=== PATIENT | male | born 1955 | race Caucasian/White ===

== ENCOUNTER 2017-03-07 10:46 | Inpatient (IN) ==
--- NOTE | 2017-03-07 11:10 | History & Physical Report ---
Date of Encounter: 03/07/17 Time of Encounter: 11:11 24 Hour HP Update - Instructions Instructions: If the History and Physical is less than 30 days old and was completed prior to A.M. admission and or procedure and has NOT been updated on calendar day of procedure please complete this update prior to performing procedure. - Update Patient reports changes in Medical Condition: No Changes in examination, assessment, or condition: No Changes in Medication: No Preop tests/diagnostics Reviewed: Yes Surgery Remains Indicated: Yes Consent for Planned Operative Procedure(s) Verified: Yes - Pre-Operative Checklist Preoperative Checklist Indicated: Yes Prophylactic Antibiotic Ordered: No Home Medications Include Beta Carlos: Yes
--- NOTE | 2017-03-07 11:11 | Pre-Sedation Evaluation ---
Pre-sedation evaluation - Pre-sedation checklist H&P (including ROS) documented in medical record: Yes Previous reaction to sedatives/anesthetics: No Dietary Status: NPO after Midnight Dentition: No loose teeth or bridges Possible difficult airway: No ASA Classification *see protocol: CLASS II-Mild systemic disease, CLASS III- Severe systemic disease
[2017-03-07] MEDS ORDERED: 0.9 % Sodium Chloride 1,000 ML IVC SCH (11:45)
[2017-03-07] MEDS ORDERED: *HR* Midazolam HCl 5 MG/5 ML VIAL IVP ONE ×2 (12:04→12:13)
[2017-03-07] MEDS ORDERED: *HR* FentaNYL (PF) 100 MCG/2 ML VIAL ONE (12:04)
[2017-03-07] MEDS ORDERED: *HR* FentaNYL (PF) 100 MCG/2 ML VIAL IVP ONE (12:13)
[2017-03-07] MEDS ORDERED: Tetracaine/Benzocaine/Butamben 200MG/SPRAY (100SPY/BOT) MM ONE (12:13)
[2017-03-07] MEDS ORDERED: Simethicone 40 MG/0.6 ML MLS IR ONE (12:13)
[2017-03-07] MEDS ORDERED: Pantoprazole 40 MG VIAL IVP SCH (13:30)
[2017-03-07 14:15] LABS: Calcium 8.7 mg/dL (8.6-10.8); Potassium 4.3 mEq/L (3.5-4.5)
[2017-03-07] MEDS ORDERED: Ondansetron 4 MG/2 ML VIAL IVP PRN (15:53)
[2017-03-07] MEDS ORDERED: Naloxone 0.4 MG/ML INJ IVP PRN (15:53)
[2017-03-07] MEDS ORDERED: Nitroglycerin 0.4 MG TAB.SUBL SL PRN (15:59)
[2017-03-07] MEDS ORDERED: Melatonin 3 MG TABLET PO PRN (16:03)
--- NOTE | 2017-03-07 16:08 | Internal Med History&Physical ---
Date of Encounter: 03/07/17 Time of Encounter: 15:00 Assessment and Plan (1) Upper GI bleeding Current visit: Yes Status: Acute Acute GI bleeding. Upper GI endoscopy today shows LA grade a reflux esophagitis , bleeding gastric ulcer, no specimens collected. Recommendation from GI is to observe patient due to presence of very large adherent clot presumably due to an ulcer for ongoing care, keep patient nothing by mouth, continue present medications. IVP Protonix 40 mg BID and IVP Zofran Q6 PRN. Monitor H/H and f/u labs. Pt. is at high risk for further morbidity d/t bleeding, risk factors, sx, and hx. Inpatient. (2) Abdominal pain Current visit: Yes Status: Acute Acute abdominal pain that patient describes as generalized, epigastric, and like burning. Pt. states abdominal pain and melanotic stools have been intermittent over the past several weeks. Takes by mouth pantoprazole 40 mg twice a day. We will hold oral administer Protonix IV P 40 mg twice a day. IVP Zofran every 6 when necessary. Dilaudid 0.5 mg IVP for pain. NPO except medications for now. GI to do scope procedure in a.m. Qualifiers: Abdominal location: epigastric Qualified Code(s): R10.13 - Epigastric pain (3) Weakness Current visit: Yes Status: Acute Acute weakness r/t current anemia d/t blood loss in UGI tract. Falls/safety precautions ordered. PT/OT consults ordered to assess pt. for ambulation strength and stability d/t to report of dizziness w/ambulation. (4) MAHNAZ (acute kidney injury) Current visit: Yes Status: Acute MAHNAZ on chronic CKD. Pts. current creatinine 1.80 and GFR 38 on admission. Will monitor pt. and f/u labs for renal function and administer IV fluids judiciously. Will hold pts. methotrexate and aspirin for now. Avoid other nephrotoxins. Monitor I&O. (5) Anemia Current visit: Yes Status: Acute Hx of chronic anemia r/t GI bleeding. CBC ordered shows Hgb 9.4 and Hct 30.1. Previous labs from 09/15/15 show Hgb 10.2 and Hct 32.5. Will monitor H/H and f/u labs. Iron profile ordered to assess need for possible iron infusion. Pt. typed and screened (O positive). Continue pts. folic acid. Qualifiers: Anemia type: iron deficiency Iron deficiency anemia type: chronic blood loss Qualified Code(s): D50.0 - Iron deficiency anemia secondary to blood loss (chronic) (6) CAD (coronary artery disease) Current visit: Yes Status: Chronic Hx of double bypass surgery in 2013 and placement of stents x4. Continuous cardiac telemetry. Will continue Losartan 50/12/5 x 1 daily d/t hypotension w/ BID dosing. Continue atorvastatin and Coreg. Will hold aspirin d/t current GI bleeding. Qualifiers: Coronary Disease-Associated Artery/Lesion type: [place] artery [place] vs. transplanted heart: [place] heart Associated angina: angina presence unspecified Qualified Code(s): I25.10 - Atherosclerotic heart disease of [place] coronary artery without angina pectoris (7) HTN (hypertension) Current visit: Yes Status: Chronic Hx of chronic HTN. Monitor pt. and VS. Continue pts. Losartan/HCTZ. Pt. takes 50 /12.5 BID but states his BP tends to go low. Will administer 1 daily 50/12.5 and monitor pt. Qualifiers: Hypertension type: essential hypertension Qualified Code(s): I10 - Essential (primary) hypertension (8) HLD (hyperlipidemia) Current visit: Yes Status: Chronic Hx of chronic HLD. Lipid panel in a.m. labs. Continue pts. atorvastatin. Qualifiers: Hyperlipidemia type: pure hypercholesterolemia Qualified Code(s): E78.00 - Pure hypercholesterolemia, unspecified; E78.0 - Pure hypercholesterolemia (9) GERD (gastroesophageal reflux disease) Current visit: Yes Status: Chronic Hx of chronic GERD. Pt. takes PO pantoprazole 40 mg BID. Will hold oral and administer 40 mg IVP Protonix BID. IVP Zofran Q6 PRN for nausea. Qualifiers: Esophagitis presence: with esophagitis Qualified Code(s): K21.0 - Gastro- esophageal reflux disease with esophagitis (10) Rheumatoid arthritis Current visit: Yes Status: Chronic Hx of chronic RA. Pt. reports he takes methotrexate 5 every Tuesday. Will hold methotrexate now d/t current reduced renal function. Qualifiers: Rheumatoid arthritis location: multiple sites Rheumatoid factor presence: unspecified presence Qualified Code(s): M06.9 - Rheumatoid arthritis, unspecified (11) DVT prophylaxis Current visit: Yes Status: Acute Bilateral SCDs on LEs for DVT prophylaxis. Pharmacologic DVT prophylaxis contraindicated due to current GI bleeding. Monitor pt. for signs of bleeding. Internal Medicine - H&P: HPI Chief complaint: Abdominal Pain/UGI bleeding Admitted From: Emergency Dept Plans for Post Hospital Care: Home History of present illness: Mr. Morrison is a 62 year old male with medical history of CAD (open heart surgery with bypass in 2013 and stent placement 4), sleep apnea, HTN, HLD, GERD , COPD, and RA presents from the ED with chief complaint of abdominal pain and heartburn intermittently for the past several weeks that he describes as burning and pain. Patient states he has been experiencing black stools for the past several weeks intermittently with the last incident 1 week ago. Patient also states he is experiencing dizziness w/ambulation, generalized weakness, fatigue, and insomnia. Patient denies recent illness, fever, chills, nausea, vomiting, headache, changes in vision, chest pain, shortness of breath palpitations, numbness, tingling, pre-syncope, or syncope. Past Med Surg Social Fam HX - Past Medical History Source: patient, old records reviewed Medical history: coronary artery disease, GERD, GI bleed, hyperlipidemia, hypertension, RA, renal disease Psychiatric history: no psych history - Past Surgical History Surgical History: angioplasty/stent (x4), appendectomy, coronary bypass (CABG) ( Double bypass in 2013), vasectomy - Social History Smoking Status: Former smoker Alcohol use: none Drug use: none Current living situation: Home, With Family Activity Level: Independent ambulation Recent Out of Country Travel Within the Last 8 Weeks: No Exposure or Possible Exposure to Illness During Travel: No - Family History Father Race: Family Member Ethnicity: Non- Living Status: Age at : 79 Cause of : [place] Hx Family Cardiac Disorders: Yes ([place], CAD, HTN) Mother Race: Family Member Ethnicity: Non- Living Status: Still Living Hx Family Medical Disorders: No Brother Race: Family Member Ethnicity: Non- Living Status: Age at : 39 Cause of : [place] Hx Family Cardiac Disorders: Yes ([place], CAD, HTN) Sister Race: Family Member Ethnicity: Non- Living Status: Still Living Hx Family Medical Disorders: No Internal Medicine - H&P: Meds Aspirin 81 mg PO DAILY 03/07/17 [History] Atorvastatin Calcium 80 mg PO HS 03/07/17 [History] Carvedilol [Coreg] 25 mg PO BID 03/07/17 [History] Folic Acid [Folic Acid] 1 mg PO BID 03/07/17 [History] Losartan/Hydrochlorothiazide [Losartan-Hctz 50-12.5 mg Tab] 1 tab PO BID [History] Methotrexate [Otrexup] 12.5 mg PO FR 03/07/17 [History] Nitroglycerin [Nitroglycerin] 0.4 mg PO Q5M PRN 03/07/17 [History] Pantoprazole Sodium 40 mg PO BID 03/07/17 [History] 3 Allergy/AdvReac Type Severity Reaction Status Date / Time Amoxicillin [From Augmentin] AdvReac Gastrointestinal Verified 03/07/17 11:41 Upset clavulanic acid AdvReac Gastrointestinal Verified 03/07/17 11:41 [From Augmentin] Upset All Systems PM: A 10-system review of systems was performed and is negative for pertinent findings except as documented above in the HPI. - Constitutional Constitutional: as per HPI, fatigue, weakness, no chills, no fever(s), no night sweats - EENT Eyes: no change in vision, no discharge, no pain, no photophobia Ears: no ear discharge, no ear pain, no tinnitus Nose, mouth and throat: no dysphagia, no nasal discharge, no neck pain, no sore throat - Breasts Breasts: as per HPI - Cardiovascular Cardiovascular ROS IM: no chest pain, no diaphoresis, no dyspnea, no lightheadedness, no palpitations, no syncope - Respiratory Respiratory: no cough, no dyspnea, no wheezing, no excessive phlegm production - Gastrointestinal Gastrointestinal: as per HPI, abdominal pain, melena - Genitourinary Genitourinary ROS male: as per HPI - Musculoskeletal Musculoskeletal ROS IM: no numbness, no tingling - Integumentary Integumentary IM: no rash, no unusual bruising - Neurological Neurological ROS: as per HPI, dizziness, no confusion, no convulsions, no focal weakness, no numbness, no tingling, no tremor(s) - Psychiatric Psychiatric: as per HPI - Endocrine Endocrine IM: as per HPI - Hematologic/Lymphatic Hematologic/Lymphatic: no easy bruising - Allergic/Immunologic Allergic/Immunologic: as per HPI - Constitutional Vitals: Temp Pulse Resp BP Pulse Ox 98.2 F 71 16 160/84 98 03/07/17 15:07 03/07/17 15:07 03/07/17 15:07 03/07/17 15:07 03/07/17 15:07 General appearance: Present: cooperative, mild distress (Abdominal pain), A&O X 3, pleasant, obese, answers questions appropriately - Head Head exam: Present: atraumatic, normal inspection, normocephalic - Eye Eye exam: Present: PERRL, conjuntiva pink, sclera anicteric Pupils: Present: PERRL - ENT ENT exam: Present: normal exam, normal external ear exam - Neck Neck exam general surgery: Present: supple, trachea midline. Absent: lymphadenopathy - Respiratory Respiratory exam: Present: CTAB. Absent: accessory muscle use, rales, rhonchi, wheezes - Cardiovascular Cardiovascular exam: Present: RRR, +S1, +S2. Absent: diastolic murmur, gallop, rubs, systolic murmur - GI/Abdominal GI/Abdominal exam: Present: guarding, normal bowel sounds, soft, tenderness, no peritoneal signs. Absent: distended - Rectal Rectal exam: Present: deferred - Additional comments: exam deferred. - Extremities Exam Extremities exam: Present: warm, radial pulses palpable and symmetrical. Absent : calf tenderness, cyanotic, pedal edema - Back Exam Back exam: Present: normal inspection - Neurological Exam Neurological exam: Present: CN II-XII intact, oriented X3, no focal deficits. Absent: pronater drift, facial droop, speech deficit - Psychiatric Psychiatric exam: Present: normal affect, normal mood - Skin Skin exam: Present: dry, intact Internal Med - H&P Results - Labs CBC & Chem 7: 03/07/17 13:50 03/07/17 13:50 Labs: BMP 03/07/17 13:50 Sodium 140 Potassium 4.3 Chloride 109 Carbon Dioxide 26 BUN 18 Creatinine 1.80 H Glucose 96 Calcium 8.7
[2017-03-07 16:37] LABS: Basophils % 0.6 %; Eosinophils # 0.2 K/mcL (0.0-0.6); Eosinophils % 3.7 %; Hematocrit 30.1 % (37.5-50.1); Hemoglobin 9.4 g/dL (12.9-16.9); Immature Granulocytes % 0.4 % (0-4); Lymphocytes # 0.8 K/mcL (0.6-4.6); Lymphocytes % 15.4 %; Mean Corpuscular HGB Conc 31.2 g/dL (31.6-35.5); Mean Corpuscular Hemoglobin 27.6 pg (28.0-33.3); Mean Corpuscular Volume 88.5 fL (83.0-100.0); Mean Platelet Volume 10.1 fL (9.4-12.4); Monocytes # 0.4 K/mcL (0.0-1.3); Monocytes % 7.6 %; Neutrophils # 3.9 K/mcL (1.6-8.9); Platelet Count 121 K/mcL (140-400); Red Cell Distribution Width 17.1 % (11.5-14.5); Segmented Neutrophils % 72.3 %
[2017-03-07] MEDS: Losartan/HCTZ 50-12.5 TABLET PO SCH (17:57)
[2017-03-07] MEDS: *HR* HYDROmorphone (PF) 1 MG/ML SYRINGE IVP PRN (17:57)
[2017-03-07] MEDS: Pantoprazole 40 MG VIAL IVP SCH (17:57)
--- NOTE | 2017-03-07 19:48 | Event Note ---
Date of Encounter: 03/07/17 Time of Encounter: 18:40 Patient seen and examined. Plan discussed with PERSONAL DRIVER. History and physical reviewed and agree with the plan S Patient stated today he had progressive epigastric discomfort sharp-like sensation 10 out of 10 in severity mild relief with Protonix. Patient had EGD today which show large blood clot, LA grade a reflux esophagitis, bleeding gastric ulcer. Patient is feeling much better now after Protonix and pain medication. Patient denies any chest pain or shortness of breath Chest clear to auscultation bilateral Heart S1-S2 normal regular rate and rhythm Abdomen soft Assessment and plan Reflux esophagitis Bleeding gastric ulcer Anemia secondary to blood loss Anemia workup, Protonix, monitor overnight, possible EGD tomorrow
[2017-03-07] MEDS: Folic Acid 1 MG TABLET PO SCH (22:52)
[2017-03-07] MEDS: 0.9 % Sodium Chloride 1,000 ML IVC SCH (22:52)
[2017-03-08] MEDS: *HR* HYDROmorphone (PF) 1 MG/ML SYRINGE IVP PRN ×3 (04:15→21:47)
[2017-03-08] MEDS: Pantoprazole 40 MG VIAL IVP SCH ×2 (05:33→17:45)
[2017-03-08 07:25] LABS: Basophils % 0.6 %; Eosinophils # 0.2 K/mcL (0.0-0.6); Eosinophils % 3.9 %; Hematocrit 27.9 % (37.5-50.1); Hemoglobin 8.9 g/dL (12.9-16.9); Immature Granulocytes % 0.2 % (0-4); Lymphocytes # 0.8 K/mcL (0.6-4.6); Lymphocytes % 15.7 %; Mean Corpuscular HGB Conc 31.9 g/dL (31.6-35.5); Mean Corpuscular Hemoglobin 28.3 pg (28.0-33.3); Mean Corpuscular Volume 88.6 fL (83.0-100.0); Mean Platelet Volume 10.3 fL (9.4-12.4); Monocytes # 0.3 K/mcL (0.0-1.3); Monocytes % 6.3 %; Neutrophils # 3.6 K/mcL (1.6-8.9); Platelet Count 104 K/mcL (140-400); Red Blood Count 3.15 M/mcL (4.19-5.50); Red Cell Distribution Width 17.1 % (11.5-14.5); Segmented Neutrophils % 73.3 %
[2017-03-08 07:33] LABS: INR 1.4; Prothrombin Time 14.8 Seconds (9.4-12.1)
[2017-03-08 07:35] LABS: Albumin 2.5 g/dL (3.5-5.0); Albumin/Globulin Ratio 0.6 (1.1-2.2); Bilirubin,Total 1.4 mg/dL (0.2-1.2); Calcium 8.2 mg/dL (8.6-10.8); Chol/HDL Ratio 3.7 (0-4.9); Globulin 4.3 g/dL (2.4-3.5); Magnesium 1.6 mg/dL (1.6-2.6); Total Protein 6.8 g/dL (6.0-8.3)
[2017-03-08 07:36] LABS: Activated Partial Thrombo Time 32.2 Seconds (26.0-36.0)
[2017-03-08 07:52] LABS: Hemoglobin A1C 5.3 %
[2017-03-08] MEDS: Losartan/HCTZ 50-12.5 TABLET PO SCH (08:35)
[2017-03-08] MEDS: Folic Acid 1 MG TABLET PO SCH ×2 (08:35→21:55)
[2017-03-08] MEDS: 0.9 % Sodium Chloride 1,000 ML IVC SCH ×2 (08:37→21:53)
--- NOTE | 2017-03-08 08:50 | Gastroenterology Consult Note ---
<Carlos Perez - Last Filed: 03/08/17 08:44> Date of Encounter: 03/08/17 Time of Encounter: 08:44 - Assessment and plan (2) Weight loss Status: Acute Assessment and plan: reports 10 pound weight loss in past month reports last colonoscopy at age 48 with findings of benign polyps patient needs another screening colonoscopy (4) Gastric ulcer Status: Acute Assessment and plan: EGD yesterday showd cratered gastric ulcer bleeding with massive adherent clot. patient admitted duet o high risk of bleeding. hgb 8.9. Baseline 13 NPO continue PPI BID EGD today. Qualifiers: Gastric ulcer chronicity: acute Gastric ulcer complication status: unspecified whether hemorrhage or perforation present Qualified Code(s): K25.3 - Acute gastric ulcer without hemorrhage or perforation - Time Spent With Patient Total time spent is greater than 50% in coordination of care (as documented) at patient's floor/unit and/or counseling patient: GI History of Present Illness - Data of Consult Patient: known to practice within the last 3 years Consult date: 03/07/17 Requesting Physician: Kellen Nunn MD - Consult Narrative Reason for consult: bleeing gastric ulcer with large adherent clot. History of present illness: Mr. Morrison is a 62 year old male was admitted after having found a large gastric ulcer with adherent massive clot. Patient underwent EGD due to recurrent abdominal pain and history of peptic ulcer disease. Patient states in the last month he has lost 10 pounds. He reports sore epigastric pain. He denies black stools, hematochezia, nausea, vomiting. Patient's hemoglobin was 9.4 on admission below her baseline of 13. He denies smoking, use of alcohol. Reports taking low-dose daily aspirin and sometimes Tylenol for pain. Denies use of NSAIDs. Denies family history of colon cancer. Past Med Surg Social Fam HX - Past Medical History Medical history: coronary artery disease, GERD, GI bleed, hyperlipidemia, hypertension, RA, renal disease Psychiatric history: no psych history - Past Surgical History Surgical History: angioplasty/stent (x4), appendectomy, coronary bypass (CABG) ( Double bypass in 2013), vasectomy - Social History Smoking Status: Former smoker Alcohol use: none Drug use: none - Family History Father Race: Family Member Ethnicity: Non- Living Status: Age at : 79 Cause of : [place] Hx Family Cardiac Disorders: Yes ([place], CAD, HTN) Mother Race: Family Member Ethnicity: Non- Living Status: Still Living Hx Family Medical Disorders: No Brother Race: Family Member Ethnicity: Non- Living Status: Age at : 39 Cause of : [place] Hx Family Cardiac Disorders: Yes ([place], CAD, HTN) Sister Race: Family Member Ethnicity: Non- Living Status: Still Living Hx Family Medical Disorders: No Review of Systems: Constitutional: Denies fever, chills HEENT: Denies headache, vision changes, neck pain, sore throat, rhinorrhea Heart: Denies chest pain palpitations Lungs: Denies shortness of breath cough Abdomen: Reports abdominal pain. Denies nausea vomiting diarrhea Back: Denies back pain Kidney: Denies dysuria, hematuria Skin: warm and dry Extremities: Denies swelling, pain Neuro: Denies numbness, and tingling - Constitutional Vitals: Temp Pulse Resp BP Pulse Ox 97.8 F 64 16 170/82 99 03/08/17 07:30 03/08/17 07:30 03/08/17 07:30 03/08/17 07:30 03/08/17 07:30 - Other Additional findings: General: Pleasant without distress HEENT: Head atraumatic, normocephalic, EOMI, PERRL, neck nontender to palpation , absent lymphadenopathy, Moist Mucous Membranes, Heart: Regular rate and rhythm with no murmur Lungs: Clear to auscultation bilaterally Abdomen: Soft nontender, nondistended positive bowel sounds Skin: warm and dry Extremities: Absent pedal edema, Neuro: Alert oriented 3 Vascular: Pedal and radial pulses 2 out of 4 Results - Labs CBC & Chem 7: 03/08/17 07:02 03/08/17 07:02 Labs: Last Result Calcium 8.2 mg/dL (8.6-10.8) L 03/08/17 07:02 Iron 72 mcg/dL (65-175) 03/07/17 13:50 % Saturation 21 % (20-55) 03/07/17 13:50 Transferrin 244 mg/dL (174-364) 03/07/17 13:50 Triglycerides 109 mg/dL (< 150) 03/08/17 07:02 Entire Visit Hgb 8.9 g/dL (12.9-16.9) L 03/08/17 07:02 Hct 27.9 % (37.5-50.1) L 03/08/17 07:02 PT 14.8 Seconds (9.4-12.1) H 03/08/17 07:02 Total Bilirubin 1.4 mg/dL (0.2-1.2) H 03/08/17 07:02 AST 42 Units/L (5-34) H 03/08/17 07:02 ALT 41 Units/L (0-55) 03/08/17 07:02 - ABG ABG results: PT/INR, D-dimer PT 14.8 Seconds (9.4-12.1) H 03/08/17 07:02 Consult Discharge Plan - Plan Instructions: Chronic Kidney Disease (DC), Gastroesophageal Reflux Disease (DC) , Chronic Hypertension (DC) Additional Instructions: Please see GI Dr. Tanner in 3-5 days [place] see Heme Onc Dr. Denton in 3-5 days Referrals: Kofi Tanner MD [Partnered Physician] - Miguel Monae MD [Partnered Physician] - Rhoda Yu MD [Non-Partnered Physician] - Prescriptions: OxyCODONE Immed Rel [Roxicodone 5 MG] 5 mg PO Q4HR PRN #20 tablet PRN Reason: Moderate Pain amLODIPine [Norvasc] 5 mg PO DAILY #30 tablet Losartan Potassium [Cozaar] 100 mg PO DAILY #30 tab Pantoprazole Sodium 40 mg PO BID #60 tablet. Sucralfate [Carafate] 1 gm PO QIDA #120 udc <Kofi Tanner - Last Filed: 03/16/17 09:22> Date of Encounter: 03/08/17 - Time Spent With Patient Total time spent is greater than 50% in coordination of care (as documented) at patient's floor/unit and/or counseling patient: GI History of Present Illness - Data of Consult Requesting Physician: Kellen Nunn MD - Consult Narrative History of present illness: Mr. Morrison is a 62 year old male - Constitutional Vitals: Temp Pulse Resp BP Pulse Ox 98.7 F 72 16 142/80 98 12//17 08:13 03/12/17 08:13 03/12/17 08:13 03/12/17 08:13 03/12/17 08:13 Results - Labs CBC & Chem 7: 03/11/17 17:00 03/10/17 05:47 Labs: Last Result Calcium 7.9 mg/dL (8.6-10.8) L 03/10/17 05:47 Iron 72 mcg/dL (65-175) 03/07/17 13:50 % Saturation 21 % (20-55) 03/07/17 13:50 Transferrin 244 mg/dL (174-364) 03/07/17 13:50 Triglycerides 109 mg/dL (< 150) 03/08/17 07:02 Entire Visit Hgb 9.4 g/dL (12.9-16.9) L 03/11/17 17:00 Hct 29.7 % (37.5-50.1) L 03/11/17 17:00 PT 14.8 Seconds (9.4-12.1) H 03/08/17 07:02 Total Bilirubin 1.0 mg/dL (0.2-1.2) 03/10/17 05:47 AST 29 Units/L (5-34) 03/10/17 05:47 ALT 30 Units/L (0-55) 03/10/17 05:47 Carcinoembryonic Ag 5.4 ng/mL (0-5.0) H 03/09/17 06:12 - ABG ABG results: PT/INR, D-dimer PT 14.8 Seconds (9.4-12.1) H 03/08/17 07:02 - Attending Attestation Patient admitted with large adherent clot in the body of stomach. Hemoglobin significantly dropped from his last check. I examined this patient and my medical decision-making was reviewed with the Resident Physician. I agree with the documented findings, disposition and treatment plan as described except to the extent set forth below.
--- NOTE | 2017-03-08 10:17 | Internal Med Progress Note ---
Date of Encounter: 03/08/17 Time of Encounter: 10:13 - Assessment and plan (1) Acute blood loss anemia Current Visit: Yes Status: Acute Assessment and plan: s/p EGD - found blood clot over gastric ulcer Hb dropped down to 8.9 today...baseline @ 10.2 cont close monitoring No need of PRBC transfusion now scheduled for f/u EGD today (2) Upper GI bleeding Current Visit: Yes Status: Acute Assessment and plan: due to Gastric ulcer cont PPI BID + Carafate scheduled for f/u EGD today (3) Gastric ulcer Current Visit: Yes Status: Acute Qualifiers: Gastric ulcer chronicity: acute Gastric ulcer complication status: unspecified whether hemorrhage or perforation present Qualified Code(s): K25.3 - Acute gastric ulcer without hemorrhage or perforation (4) Acute kidney injury superimposed on CKD Current Visit: Yes Status: Acute Assessment and plan: mild MAHNAZ on CKD-3 improving slowly baseline Cr @ 1.4 cont IV hydration (5) Rheumatoid arthritis Current Visit: Yes Status: Chronic Assessment and plan: Hold methotrexate due to ulcer Qualifiers: Rheumatoid arthritis location: multiple sites Rheumatoid factor presence: unspecified presence Qualified Code(s): M06.9 - Rheumatoid arthritis, unspecified (6) CAD (coronary artery disease) Current Visit: Yes Status: Chronic Assessment and plan: held ASA / Anti platelet meds cont Coreg + Statin Qualifiers: Coronary Disease-Associated Artery/Lesion type: [place] artery [place] vs. transplanted heart: [place] heart Associated angina: angina presence unspecified Qualified Code(s): I25.10 - Atherosclerotic heart disease of [place] coronary artery without angina pectoris - Subjective Interval history: Mr. Morrison is a 62 year old male with medical history of CAD (open heart surgery with bypass in 2012 and stent placement 4), sleep apnea, HTN, HLD, GERD , COPD, and RA went for an elective EGD for his recurrent abdominal pain and recent weight loss. He found to have a large gastric ulcer with adherent massive clot. He was admitted here for acute GI bleed and anemia. He denies black stools, hematochezia, nausea, vomiting. Patient's hemoglobin was 9.4 on admission below her baseline of 13. He denied any CP / SOB / Abd pain today. Stated he is feeling little better now. - Constitutional Vitals: Temp Pulse Resp BP Pulse Ox 97.8 F 64 16 170/82 99 03/08/17 07:30 03/08/17 07:30 03/08/17 07:30 03/08/17 07:30 03/08/17 08:40 General appearance: Present: cooperative, A&O X 3, no acute distress, obese, answers questions appropriately - Head Head exam: Present: atraumatic, normal inspection - Neck Neck exam general surgery: Present: supple - Respiratory Respiratory exam: Present: decreased breath sounds. Absent: rales, respiratory distress, rhonchi, wheezes - Cardiovascular Cardiovascular exam: Present: RRR, +S1, +S2. Absent: systolic murmur - GI/Abdominal GI/Abdominal exam: Present: normal bowel sounds, soft. Absent: rebound, rigid, tenderness - Extremities Exam Extremities exam: Absent: calf tenderness, pedal edema, tenderness - Back Exam Back exam: Absent: CVA tenderness (L), CVA tenderness (R) - Psychiatric Psychiatric exam: Present: normal affect, normal mood - Skin Skin exam: Absent: rash Internal Medicine: Result - Labs CBC & Chem 7: 03/08/17 07:02 03/08/17 07:02 Labs: Short CBC 03/07/17 03/08/17 Range/Units 13:50 07:02 WBC 5.4 4.9 (4.3-11.1) K/mcL Hgb 9.4 L 8.9 L (12.9-16.9) g/dL Hct 30.1 L 27.9 L (37.5-50.1) % Plt Count 121 L 104 L (140-400) K/mcL Neutrophils # 3.9 3.6 (1.6-8.9) K/mcL BMP 03/07/17 03/08/17 13:50 07:02 Sodium 140 139 Potassium 4.3 4.0 Chloride 109 108 Carbon Dioxide 26 23 BUN 18 18 Creatinine 1.80 H 1.76 H Glucose 96 87 Calcium 8.7 8.2 L Liver Function 03/08/17 Range/Units 07:02 Total Bilirubin 1.4 H (0.2-1.2) mg/dL AST 42 H (5-34) Units/L ALT 41 (0-55) Units/L Alkaline Phosphatase 151 H (38-126) Units/L Albumin 2.5 L (3.5-5.0) g/dL - ABG Interpretation ABG results: PT/INR, D-dimer PT 14.8 Seconds (9.4-12.1) H 03/08/17 07:02 Consult Discharge Plan - Plan Referrals: NONE,PCP [Primary Care Provider] -
[2017-03-08 11:20] LABS: Basophils % 0.6 %; Eosinophils # 0.2 K/mcL (0.0-0.6); Eosinophils % 3.7 %; Hematocrit 27.9 % (37.5-50.1); Hemoglobin 8.7 g/dL (12.9-16.9); Immature Granulocytes % 0.2 % (0-4); Lymphocytes # 0.7 K/mcL (0.6-4.6); Lymphocytes % 13.9 %; Mean Corpuscular HGB Conc 31.2 g/dL (31.6-35.5); Mean Corpuscular Volume 89.7 fL (83.0-100.0); Mean Platelet Volume 10.1 fL (9.4-12.4); Monocytes # 0.4 K/mcL (0.0-1.3); Monocytes % 7.3 %; Neutrophils # 3.6 K/mcL (1.6-8.9); Platelet Count 109 K/mcL (140-400); Red Blood Count 3.11 M/mcL (4.19-5.50); Segmented Neutrophils % 74.3 %
--- NOTE | 2017-03-08 12:47 | Anesthesia Evaluation PreOp ---
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: Denies Any Significant HX Other Medical History: Renal (MAHNAZ) Anesthesia History: No Prior Anesthetic Complications, Past Anesthesia (CABG) Alcohol Use: none Drug use: none Medications and Allergies Aspirin 81 mg PO DAILY 03/07/17 [History] Atorvastatin Calcium 80 mg PO HS 03/07/17 [History] Carvedilol [Coreg] 25 mg PO BID 03/07/17 [History] Folic Acid [Folic Acid] 1 mg PO BID 03/07/17 [History] Losartan/Hydrochlorothiazide [Losartan-Hctz 50-12.5 mg Tab] 1 tab PO BID [History] Methotrexate [Otrexup] 12.5 mg PO FR 03/07/17 [History] Nitroglycerin [Nitroglycerin] 0.4 mg PO Q5M PRN 03/07/17 [History] Pantoprazole Sodium 40 mg PO BID 03/07/17 [History] 3 Allergy/AdvReac Type Severity Reaction Status Date / Time Amoxicillin [From Augmentin] AdvReac Gastrointestinal Verified 03/07/17 11:41 Upset clavulanic acid AdvReac Gastrointestinal Verified 03/07/17 11:41 [From Augmentin] Upset - Meds/Allergy Pre-op Review Medications Reviewed: Yes Allergies Reviewed: Yes Beta Blockers on Current Med List: Yes If Beta Blockers taken, Date/Time (Last Dose taken): today 834 Anesthesia Results - Labs 03/08/17 10:37 03/08/17 07:02 Anesthesia Exam Selected Entries 03/08/17 12:42 Temperature 97.8 F Pulse Rate 68 Respiratory Rate 18 Blood Pressure 153/86 O2 Sat by Pulse Oximetry 99 Weight: 115kg NPO (# of Hours): >>8hrs - HEENT Pupil (Motor): EOMI Mallampati: II Teeth: Normal Oral Opening: Greater than 3 - INDUSTRIAL [employer]CE FABRICATOR LOC: Oriented [employer]USTRIAL [employer]NACE FABRICATOR Motor: Normal RUE, Normal LUE, Normal RLE, Normal LLE, Normal Face [employer] FABRICATOR Sensory: Normal: RUE, LUE, RLE, LLE, Face - Cardiac Rhythm: Regular Murmur: None - Pulmonary Breath Sounds: bilateral Clear Respiratory Effort: Symmetrical Anesthesia Assess/Plan ASA Score: 2 Modified [place] Scale for Level of Consciousness: Cooperative, oriented, and tranquil Anesthetic Plan: MAC Monitoring Plan: Standard Monitors Recovery Plan: Other (Agrees to MAC)
[2017-03-08] MEDS ORDERED: *HR* Propofol 200 MG/20 ML VIAL IVP ONE (13:30)
[2017-03-08 16:54] LABS: Hematocrit 28.5 % (37.5-50.1); Hemoglobin 8.9 g/dL (12.9-16.9)
[2017-03-09 04:32] LABS: Basophils % 0.4 %; Eosinophils # 0.1 K/mcL (0.0-0.6); Hematocrit 27.6 % (37.5-50.1); Hemoglobin 8.9 g/dL (12.9-16.9); Immature Granulocytes % 0.8 % (0-4); Lymphocytes # 0.4 K/mcL (0.6-4.6); Lymphocytes % 4.4 %; Mean Corpuscular HGB Conc 32.2 g/dL (31.6-35.5); Mean Corpuscular Hemoglobin 28.6 pg (28.0-33.3); Mean Corpuscular Volume 88.7 fL (83.0-100.0); Mean Platelet Volume 10.3 fL (9.4-12.4); Monocytes # 0.6 K/mcL (0.0-1.3); Monocytes % 6.3 %; Neutrophils # 8.6 K/mcL (1.6-8.9); Platelet Count 240 K/mcL (140-400); Red Blood Count 3.11 M/mcL (4.19-5.50); Segmented Neutrophils % 87.1 %
[2017-03-09] MEDS: Pantoprazole 40 MG VIAL IVP SCH ×2 (05:30→16:42)
[2017-03-09] MEDS: *HR* HYDROmorphone (PF) 1 MG/ML SYRINGE IVP PRN ×3 (05:38→20:10)
[2017-03-09 07:12] LABS: Albumin 2.3 g/dL (3.5-5.0); Albumin/Globulin Ratio 0.5 (1.1-2.2); Bilirubin,Total 1.1 mg/dL (0.2-1.2); Calcium 8.2 mg/dL (8.6-10.8); Globulin 4.3 g/dL (2.4-3.5); Potassium 4.1 mEq/L (3.5-4.5); Total Protein 6.6 g/dL (6.0-8.3)
[2017-03-09] MEDS: 0.9 % Sodium Chloride 1,000 ML IVC SCH ×3 (08:13→22:04)
[2017-03-09] MEDS: Losartan/HCTZ 50-12.5 TABLET PO SCH (08:18)
[2017-03-09] MEDS: Folic Acid 1 MG TABLET PO SCH ×2 (08:18→20:10)
--- NOTE | 2017-03-09 14:15 | Internal Med Progress Note ---
Date of Encounter: 03/09/17 Time of Encounter: 14:12 - Assessment and plan (1) Acute blood loss anemia Current Visit: Yes Status: Acute Assessment and plan: s/p EGD - found blood clot over gastric ulcer Hb stable around 8.9...his baseline @ 10.2 cont close monitoring No need of PRBC transfusion now (2) Upper GI bleeding Current Visit: Yes Status: Acute Assessment and plan: due to Gastric ulcer cont PPI BID + Carafate Repeat EGD y/d showed stable clot over gastric ulcer (3) Gastric ulcer Current Visit: Yes Status: Acute Qualifiers: Gastric ulcer chronicity: acute Gastric ulcer complication status: unspecified whether hemorrhage or perforation present Qualified Code(s): K25.3 - Acute gastric ulcer without hemorrhage or perforation (4) Acute kidney injury superimposed on CKD Current Visit: Yes Status: Acute Assessment and plan: mild MAHNAZ on CKD-3 improving slowly close to his baseline cont gentle IV hydration (5) Rheumatoid arthritis Current Visit: Yes Status: Chronic Assessment and plan: Hold methotrexate due to ulcer Qualifiers: Rheumatoid arthritis location: multiple sites Rheumatoid factor presence: unspecified presence Qualified Code(s): M06.9 - Rheumatoid arthritis, unspecified (6) CAD (coronary artery disease) Current Visit: Yes Status: Chronic Assessment and plan: held ASA / Anti platelet meds cont Coreg + Statin Qualifiers: Coronary Disease-Associated Artery/Lesion type: [place] artery [place] vs. transplanted heart: [place] heart Associated angina: angina presence unspecified Qualified Code(s): I25.10 - Atherosclerotic heart disease of [place] coronary artery without angina pectoris - Subjective Interval history: Mr. Morrison is a 62 year old male with medical history of CAD (open heart surgery with bypass in 2012 and stent placement 4), sleep apnea, HTN, HLD, GERD , COPD, and RA went for an elective EGD for his recurrent abdominal pain and recent weight loss. He found to have a large gastric ulcer with adherent massive clot. He was admitted here for acute GI bleed and anemia. He denies black stools, hematochezia, nausea, vomiting. Patient's hemoglobin was 9.4 on admission below his baseline of 13. He denied any CP / SOB / Abd pain today. Stated he is feeling little better now. Started on clear liquid diet, which he has been tolerating well - Constitutional Vitals: Temp Pulse Resp BP Pulse Ox 98.1 F 65 14 160/81 99 03/09/17 10:33 03/09/17 10:33 03/09/17 10:33 03/09/17 10:33 03/09/17 10:33 General appearance: Present: cooperative, A&O X 3, no acute distress, obese, answers questions appropriately - Head Head exam: Present: atraumatic, normal inspection - Respiratory Respiratory exam: Present: decreased breath sounds. Absent: rales, respiratory distress, rhonchi, wheezes - Cardiovascular Cardiovascular exam: Present: RRR, +S1, +S2. Absent: tachycardia - GI/Abdominal GI/Abdominal exam: Present: normal bowel sounds, soft. Absent: rebound, rigid, tenderness - Extremities Exam Extremities exam: Absent: calf tenderness, pedal edema, tenderness - Back Exam Back exam: Absent: CVA tenderness (L), CVA tenderness (R) - Neurological Exam Neurological exam: Present: alert, oriented X3 - Psychiatric Psychiatric exam: Present: normal affect, normal mood Internal Medicine: Result - Labs CBC & Chem 7: 03/09/17 04:04 03/09/17 06:12 Labs: Short CBC 03/08/17 03/09/17 Range/Units 16:43 04:04 WBC 9.9 D (4.3-11.1) K/mcL Hgb 8.9 L 8.9 L (12.9-16.9) g/dL Hct 28.5 L 27.6 L (37.5-50.1) % Plt Count 240 D (140-400) K/mcL Neutrophils # 8.6 (1.6-8.9) K/mcL BMP 03/09/17 06:12 Sodium 141 Potassium 4.1 Chloride 109 Carbon Dioxide 23 BUN 21 Creatinine 1.67 H Glucose 81 Calcium 8.2 L Liver Function 03/09/17 Range/Units 06:12 Total Bilirubin 1.1 (0.2-1.2) mg/dL AST 36 H (5-34) Units/L ALT 36 (0-55) Units/L Alkaline Phosphatase 150 H (38-126) Units/L Albumin 2.3 L (3.5-5.0) g/dL - ABG Interpretation ABG results: PT/INR, D-dimer PT 14.8 Seconds (9.4-12.1) H 03/08/17 07:02 Consult Discharge Plan - Plan Referrals: NONE,PCP [Primary Care Provider] -
[2017-03-10] MEDS: Pantoprazole 40 MG VIAL IVP SCH ×2 (05:48→17:24)
[2017-03-10 06:01] LABS: Eosinophils # 0.2 K/mcL (0.0-0.6); Eosinophils % 4.1 %; Hematocrit 26.7 % (37.5-50.1); Hemoglobin 8.3 g/dL (12.9-16.9); Immature Granulocytes % 0.5 % (0-4); Lymphocytes # 0.8 K/mcL (0.6-4.6); Lymphocytes % 19.1 %; Mean Corpuscular HGB Conc 31.1 g/dL (31.6-35.5); Mean Corpuscular Hemoglobin 27.9 pg (28.0-33.3); Mean Corpuscular Volume 89.6 fL (83.0-100.0); Mean Platelet Volume 9.9 fL (9.4-12.4); Monocytes # 0.5 K/mcL (0.0-1.3); Monocytes % 11.8 %; Neutrophils # 2.6 K/mcL (1.6-8.9); Platelet Count 115 K/mcL (140-400); Red Blood Count 2.98 M/mcL (4.19-5.50); Red Cell Distribution Width 17.2 % (11.5-14.5); Segmented Neutrophils % 63.5 %
[2017-03-10 06:15] LABS: Albumin 2.3 g/dL (3.5-5.0); Albumin/Globulin Ratio 0.6 (1.1-2.2); Calcium 7.9 mg/dL (8.6-10.8); Globulin 4.1 g/dL (2.4-3.5); Potassium 3.6 mEq/L (3.5-4.5); Total Protein 6.4 g/dL (6.0-8.3)
[2017-03-10] MEDS: *HR* HYDROmorphone (PF) 1 MG/ML SYRINGE IVP PRN ×2 (09:00→17:23)
[2017-03-10] MEDS: Folic Acid 1 MG TABLET PO SCH ×2 (09:02→21:20)
[2017-03-10] MEDS: Losartan/HCTZ 50-12.5 TABLET PO SCH (09:02)
--- NOTE | 2017-03-10 11:43 | Internal Med Progress Note ---
Date of Encounter: 03/10/17 Time of Encounter: 11:41 - Assessment and plan (1) Acute blood loss anemia Current Visit: Yes Status: Acute Assessment and plan: s/p EGD - found blood clot over gastric ulcer Hb stable around 8.3...his baseline @ 10.2 cont close monitoring No need of PRBC transfusion now (2) Upper GI bleeding Current Visit: Yes Status: Acute Assessment and plan: due to Gastric ulcer cont PPI BID + Carafate Repeat EGD y/d showed stable clot over gastric ulcer schedule for f/u EGD today (3) Gastric ulcer Current Visit: Yes Status: Acute Qualifiers: Gastric ulcer chronicity: acute Gastric ulcer complication status: unspecified whether hemorrhage or perforation present Qualified Code(s): K25.3 - Acute gastric ulcer without hemorrhage or perforation (4) Acute kidney injury superimposed on CKD Current Visit: Yes Status: Acute Assessment and plan: mild MAHNAZ on CKD-3 improving slowly close to his baseline cont gentle IV hydration (5) Rheumatoid arthritis Current Visit: Yes Status: Chronic Assessment and plan: Hold methotrexate due to ulcer Qualifiers: Rheumatoid arthritis location: multiple sites Rheumatoid factor presence: unspecified presence Qualified Code(s): M06.9 - Rheumatoid arthritis, unspecified (6) CAD (coronary artery disease) Current Visit: Yes Status: Chronic Assessment and plan: held ASA / Anti platelet meds cont Coreg + Statin Qualifiers: Coronary Disease-Associated Artery/Lesion type: [place] artery [place] vs. transplanted heart: [place] heart Associated angina: angina presence unspecified Qualified Code(s): I25.10 - Atherosclerotic heart disease of [place] coronary artery without angina pectoris - Subjective Interval history: Mr. Morrison is a 62 year old male with medical history of CAD (open heart surgery with bypass in 2013 and stent placement 4), sleep apnea, HTN, HLD, GERD , COPD, and RA went for an elective EGD for his recurrent abdominal pain and recent weight loss. He found to have a large gastric ulcer with adherent massive clot. He was admitted here for acute GI bleed and anemia. He denies black stools, hematochezia, nausea, vomiting. Patient's hemoglobin was 9.4 on admission below his baseline of 13. He denied any CP / SOB / Abd pain today. Stated he is feeling little better now. Started on clear liquid diet y/d, which he did tolerated well. No events over night. Denied any melena - Constitutional Vitals: Temp Pulse Resp BP Pulse Ox 97.6 F 65 16 145/83 97 03/10/17 11:31 03/10/17 11:31 03/10/17 11:31 03/10/17 11:31 03/10/17 11:31 General appearance: Present: cooperative, A&O X 3, no acute distress, obese, answers questions appropriately - Head Head exam: Present: atraumatic, normal inspection - Respiratory Respiratory exam: Present: CTAB. Absent: decreased breath sounds, rales, respiratory distress, rhonchi, wheezes - Cardiovascular Cardiovascular exam: Present: RRR, +S1, +S2. Absent: systolic murmur - GI/Abdominal GI/Abdominal exam: Present: normal bowel sounds, soft. Absent: rebound, rigid, tenderness - Extremities Exam Extremities exam: Absent: calf tenderness, pedal edema, tenderness Internal Medicine: Result - Labs CBC & Chem 7: 03/10/17 05:47 03/10/17 05:47 Labs: Short CBC 03/10/17 Range/Units 05:47 WBC 4.1 L D (4.3-11.1) K/mcL Hgb 8.3 L (12.9-16.9) g/dL Hct 26.7 L (37.5-50.1) % Plt Count 115 L D (140-400) K/mcL Neutrophils # 2.6 (1.6-8.9) K/mcL BMP 03/10/17 05:47 Sodium 140 Potassium 3.6 Chloride 110 H Carbon Dioxide 22 BUN 23 Creatinine 1.60 H Glucose 96 Calcium 7.9 L Liver Function 03/10/17 Range/Units 05:47 Total Bilirubin 1.0 (0.2-1.2) mg/dL AST 29 (5-34) Units/L ALT 30 (0-55) Units/L Alkaline Phosphatase 146 H (38-126) Units/L Albumin 2.3 L (3.5-5.0) g/dL - ABG Interpretation ABG results: PT/INR, D-dimer PT 14.8 Seconds (9.4-12.1) H 03/08/17 07:02 Consult Discharge Plan - Plan Referrals: NONE,PCP [Primary Care Provider] -
[2017-03-10] MEDS ORDERED: *HR* Propofol 200 MG/20 ML VIAL IVP ONE (13:06)
[2017-03-10] MEDS ORDERED: Lidocaine -MPF 2% 2 ML VIAL ONE (13:07)
--- NOTE | 2017-03-10 13:07 | Anesthesia Progress Note ---
Date of Encounter: 03/10/17 Time of Encounter: 13:05 Anesthesia Note - Note Note: 03/10/17 13:05 Patient had EGD 2 days ago. There has been no change in history or exam over the interval time. Previous evaluation will be used for this case and new consent obtained.
[2017-03-10] MEDS ORDERED: Tetracaine/Benzocaine/Butamben 200MG/SPRAY (100SPY/BOT) MM ONE (13:27)
[2017-03-10] MEDS ORDERED: Simethicone 40 MG/0.6 ML MLS IR ONE (13:27)
[2017-03-10] MEDS ORDERED: Propofol 500 MG/50 ML INFUS..BTL ONE (13:48)
--- NOTE | 2017-03-10 16:53 | Oncology Inp Consult Note ---
Date of Encounter: 03/11/17 Time of Encounter: 17:00 Assessment and Plan (1) Gastric ulcer Status: Acute Assessment and plan: Gastric ULCER, lesser curvature? suspicous for malignancy pathologist reviewed slides, status post EGD biopsy, final pathology pending. Patient does history of weight loss no prior NSAID use, possible malignant ulceration. Concern for malignant ulcer discussed with patient and family nad subsequent work up and Rx. Once path available, out-patient imaging/PET scan and surgical evaluation History of CAD CABG, stent placement on antiplatelet therapy. Off ASA. PPI. Monitor labs, transfuse PRBC/iron replacement therapy Plan of care discussed today with patient. Qualifiers: Gastric ulcer chronicity: acute Gastric ulcer complication status: unspecified whether hemorrhage or perforation present Qualified Code(s): K25.3 - Acute gastric ulcer without hemorrhage or perforation - Data of Consult Requesting Physician: Kellen Nunn MD Primary Care Provider: PCP NONE - Consult Narrative Reason for consult: Gastric ulcer, rule out malignancy History of present illness: Mr. Morrison is a 62 year old male with a medical history significant for coronary artery disease, gastroesophageal reflux disease, hyperlipidemia hypertension, rheumatoid arthritis, chronic kidney disease, history of angioplasty, stent placement, coronary artery bypass grafting, hospitalized to due to findings on endoscopy. Patient underwent EGD due to weight loss abdominal discomfort and was found to have a 3 cm large gastric ulcer in the lesser curvature with a different clot. Patient was noted to have a hemoglobin of 9.4 that steadily declined to around 8. Oncology consulted with suspicion malignancy, from preliminary path PAtient reports feeling abd discomfort relieved with food intake on and off for last few wks. He denied nausea or hematemesis. No prior astrid, today his stools are dark. Past Med Surg Social Fam HX - Past Medical History Medical history: coronary artery disease, GERD, GI bleed, hyperlipidemia, hypertension, RA, renal disease Psychiatric history: no psych history - Past Surgical History Surgical History: angioplasty/stent (x4), appendectomy, coronary bypass (CABG) ( Double bypass in 2013), vasectomy - Social History Smoking Status: Former smoker Alcohol use: none Drug use: none - Family History Father Race: Family Member Ethnicity: Non- Living Status: Age at : 79 Cause of : [place] Hx Family Cardiac Disorders: Yes ([place], CAD, HTN) Mother Race: Family Member Ethnicity: Non- Living Status: Still Living Hx Family Medical Disorders: No Brother Race: Family Member Ethnicity: Non- Living Status: Age at : 39 Cause of : [place] Hx Family Cardiac Disorders: Yes ([place], CAD, HTN) Sister Race: Family Member Ethnicity: Non- Living Status: Still Living Hx Family Medical Disorders: No Medications and Allergies Aspirin 81 mg PO DAILY 03/07/17 [History] Atorvastatin Calcium 80 mg PO HS 03/07/17 [History] Carvedilol [Coreg] 25 mg PO BID 03/07/17 [History] Folic Acid [Folic Acid] 1 mg PO BID 03/07/17 [History] Losartan/Hydrochlorothiazide [Losartan-Hctz 50-12.5 mg Tab] 1 tab PO BID [History] Methotrexate [Otrexup] 12.5 mg PO FR 03/07/17 [History] Nitroglycerin [Nitroglycerin] 0.4 mg PO Q5M PRN 03/07/17 [History] Pantoprazole Sodium 40 mg PO BID 03/07/17 [History] 3 Allergy/AdvReac Type Severity Reaction Status Date / Time Amoxicillin [From Augmentin] AdvReac Gastrointestinal Verified 03/07/17 11:41 Upset clavulanic acid AdvReac Gastrointestinal Verified 03/07/17 11:41 [From Augmentin] Upset Review of systems: as in HPI Oncology - Exam - Constitutional Vitals: Temp Pulse Resp BP Pulse Ox 97.5 F L 76 14 123/65 98 03/10/17 15:51 03/10/17 15:51 03/10/17 15:51 03/10/17 15:51 03/10/17 15:51 General appearance: average body habitus, morbidly obese, obese - Head Head exam: Present: atraumatic, normal inspection - Eye Eye exam: Present: sclera anicteric - ENT ENT exam: Present: mucous membranes moist - Neck Neck exam: Present: full ROM, normal inspection - Respiratory Respiratory exam: Present: CTAB - Cardiovascular Cardiovascular exam: Present: +S1, +S2 - GI/Abdominal GI/Abdominal exam: Present: normal bowel sounds, soft - Extremities Exam Extremities exam: Present: normal inspection - Neurological Exam Neurological exam: Present: alert, CN II-XII intact, oriented X3 - Psychiatric Psychiatric exam: Present: normal mood - Skin Skin exam: Present: normal color Oncology - Results Labs: Short CBC 03/10/17 Range/Units 05:47 WBC 4.1 L D (4.3-11.1) K/mcL Hgb 8.3 L (12.9-16.9) g/dL Hct 26.7 L (37.5-50.1) % Plt Count 115 L D (140-400) K/mcL Neutrophils # 2.6 (1.6-8.9) K/mcL BMP 03/10/17 05:47 Sodium 140 Potassium 3.6 Chloride 110 H Carbon Dioxide 22 BUN 23 Creatinine 1.60 H Glucose 96 Calcium 7.9 L Liver Function 03/10/17 Range/Units 05:47 Total Bilirubin 1.0 (0.2-1.2) mg/dL AST 29 (5-34) Units/L ALT 30 (0-55) Units/L Alkaline Phosphatase 146 H (38-126) Units/L Albumin 2.3 L (3.5-5.0) g/dL Consult Discharge Plan - Plan Referrals: NONE,PCP [Primary Care Provider] -
[2017-03-10] MEDS ORDERED: 0.9 % Sodium Chloride 250 ML ONE (19:20)
[2017-03-11] MEDS: 0.9 % Sodium Chloride 1,000 ML IVC SCH (00:12)
[2017-03-11] MEDS: Pantoprazole 40 MG VIAL IVP SCH (05:43)
[2017-03-11 05:49] LABS: Basophils % 0.8 %; Eosinophils # 0.1 K/mcL (0.0-0.6); Eosinophils % 3.6 %; Hematocrit 30.1 % (37.5-50.1); Hemoglobin 9.4 g/dL (12.9-16.9); Immature Granulocytes % 0.3 % (0-4); Lymphocytes # 0.6 K/mcL (0.6-4.6); Lymphocytes % 16.4 %; Mean Corpuscular HGB Conc 31.2 g/dL (31.6-35.5); Mean Corpuscular Hemoglobin 27.8 pg (28.0-33.3); Mean Corpuscular Volume 89.1 fL (83.0-100.0); Monocytes # 0.4 K/mcL (0.0-1.3); Monocytes % 11.7 %; Neutrophils # 2.5 K/mcL (1.6-8.9); Platelet Count 117 K/mcL (140-400); Red Blood Count 3.38 M/mcL (4.19-5.50); Red Cell Distribution Width 17.3 % (11.5-14.5); Segmented Neutrophils % 67.2 %
[2017-03-11] MEDS: Losartan/HCTZ 50-12.5 TABLET PO SCH (09:08)
[2017-03-11] MEDS: Folic Acid 1 MG TABLET PO SCH ×2 (09:08→20:10)
--- NOTE | 2017-03-11 11:44 | Electrocardiograph Report ---
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
[2017-03-11] MEDS: *HR* HYDROmorphone (PF) 1 MG/ML SYRINGE IVP PRN (12:03)
--- NOTE | 2017-03-11 12:48 | Gastroenterology Progress Note ---
<Carlos Perez - Last Filed: 03/11/17 12:55> Date of Encounter: 03/11/17 Time of Encounter: 12:46 - Assessment and plan (1) Gastric mass Status: Acute Assessment and plan: Repeat EGD yesterday showed that patient has gastric mass pathology was called during procedure and stated likely adenocarcinoma but final results pending oncology on board and will followup outpatient. can advance diet as tolerated plan to get CT abdomen/pelvis with contrast: nephrology consulted as patient has hx of CKD for recommendations continue to monitor hgb: stable currently. (2) Weight loss Status: Acute Assessment and plan: reports 10 pound weight loss in past month patient needs screening colonoscopy outpatient (3) CKD (chronic kidney disease) Status: Acute Assessment and plan: stable plan for Ct abdomen/pelvis with contrast. nephro consult placed for recommendations on renal protective measures avoid nsaids. Qualifiers: Chronic kidney disease stage: stage 3 (moderate) Qualified Code(s): N18.3 - Chronic kidney disease, stage 3 (moderate) - Time Spent With Patient Total time spent is greater than 50% in coordination of care (as documented) at patient's floor/unit and/or counseling patient: - Subjective Interval history: Gastric mass found shows concern for malignancy. Awaiting pathology results. EGD procedure yesterday and stated likely adenocarcinoma but Patient denies abdominal pain today. Tolerating diet. - Constitutional Vitals: Temp Pulse Resp BP Pulse Ox 97.6 F 67 16 160/73 99 03/11/17 12:01 03/11/17 12:01 03/11/17 12:01 03/11/17 12:01 03/11/17 12:01 - Respiratory Respiratory exam: Present: CTAB - Cardiovascular Cardiovascular exam: Present: RRR, +S1, +S2 - GI/Abdominal GI/Abdominal exam: Present: normal bowel sounds, soft, no peritoneal signs - Extremities Exam Extremities exam: Present: warm. Absent: pedal edema - Skin Skin exam: Present: dry, intact, normal color, warm Results - Labs CBC & Chem 7: 03/11/17 05:14 03/10/17 05:47 Labs: Last Result Calcium 7.9 mg/dL (8.6-10.8) L 03/10/17 05:47 Iron 72 mcg/dL (65-175) 03/07/17 13:50 % Saturation 21 % (20-55) 03/07/17 13:50 Transferrin 244 mg/dL (174-364) 03/07/17 13:50 Triglycerides 109 mg/dL (< 150) 03/08/17 07:02 Entire Visit Hgb 9.4 g/dL (12.9-16.9) L 03/11/17 05:14 Hct 30.1 % (37.5-50.1) L 03/11/17 05:14 PT 14.8 Seconds (9.4-12.1) H 03/08/17 07:02 Total Bilirubin 1.0 mg/dL (0.2-1.2) 03/10/17 05:47 AST 29 Units/L (5-34) 03/10/17 05:47 ALT 30 Units/L (0-55) 03/10/17 05:47 Carcinoembryonic Ag 5.4 ng/mL (0-5.0) H 03/09/17 06:12 - ABG ABG results: PT/INR, D-dimer PT 14.8 Seconds (9.4-12.1) H 03/08/17 07:02 - Impressions Impressions Abdomen/Pelvis CT 03/10/17 16:00 IMPRESSION: Hyperdense focus in the stomach is nonspecific and could represent a clot or possibly mass. Correlate with recent EGD. Slightly nodular contour of the liver is nonspecific but can be seen in the setting of cirrhosis. Additionally, the liver appears somewhat heterogeneous. Given the possible gastric mass, further evaluation with contrast-enhanced CT or ultrasound is recommended to evaluate for hepatic masses. Mild splenomegaly. Small volume free fluid in the pelvis. Mild stranding adjacent to the second portion of the duodenum in the right colon. This could represent focal inflammation (i.e. duodenitis/colitis), however, this could also be related to volume overload/portal hypertension. There is a 3.1 cm infrarenal abdominal aortic aneurysm. Follow-up recommendations as below. RECOMMENDATIONS: Managing Abdominal Aortic Aneurysms 3.0-3.4 cm: Every 3 years. *For abdominal aortas with maximum diameter of 2.6-2.9 cm meeting criteria for AAA (>50% of proximal normal segment). Reference: J Vasc Surg. 2008;50(4 Suppl):S2-49 D/ / 03/10/2017 17:39:37 Juwan Cabrera MD / Carri Crespo Interpreting Provider: Juwan Cabrera MD Consult Discharge Plan - Plan Instructions: Chronic Kidney Disease (DC), Gastroesophageal Reflux Disease (DC) , Chronic Hypertension (DC) Additional Instructions: Please see GI Dr. Tanner in 3-5 days Uziel see Heme Onc Dr. Denton in 3-5 days Referrals: Kofi Tanner MD [Partnered Physician] - Miguel Monae MD [Partnered Physician] - Rhoda Yu MD [Non-Partnered Physician] - Prescriptions: OxyCODONE Immed Rel [Roxicodone 5 MG] 5 mg PO Q4HR PRN #20 tablet PRN Reason: Moderate Pain amLODIPine [Norvasc] 5 mg PO DAILY #30 tablet Losartan Potassium [Cozaar] 100 mg PO DAILY #30 tab Pantoprazole Sodium 40 mg PO BID #60 tablet. Sucralfate [Carafate] 1 gm PO QIDA #120 udc <Kofi Tanenr - Last Filed: 03/16/17 11:01> Date of Encounter: 03/11/17 - Time Spent With Patient Total time spent is greater than 50% in coordination of care (as documented) at patient's floor/unit and/or counseling patient: - Constitutional Vitals: Temp Pulse Resp BP Pulse Ox 98.7 F 72 16 142/80 98 03/12/17 08:13 03/12/17 08:13 03/12/17 08:13 03/12/17 08:13 03/12/17 08:13 Results - Labs CBC & Chem 7: 03/11/17 17:00 03/10/17 05:47 Labs: Last Result Calcium 7.9 mg/dL (8.6-10.8) L 03/10/17 05:47 Iron 72 mcg/dL (65-175) 03/07/17 13:50 % Saturation 21 % (20-55) 03/07/17 13:50 Transferrin 244 mg/dL (174-364) 03/07/17 13:50 Triglycerides 109 mg/dL (< 150) 03/08/17 07:02 Entire Visit Hgb 9.4 g/dL (12.9-16.9) L 03/11/17 17:00 Hct 29.7 % (37.5-50.1) L 03/11/17 17:00 PT 14.8 Seconds (9.4-12.1) H 03/08/17 07:02 Total Bilirubin 1.0 mg/dL (0.2-1.2) 03/10/17 05:47 AST 29 Units/L (5-34) 03/10/17 05:47 ALT 30 Units/L (0-55) 03/10/17 05:47 Carcinoembryonic Ag 5.4 ng/mL (0-5.0) H 03/09/17 06:12 - ABG ABG results: PT/INR, D-dimer PT 14.8 Seconds (9.4-12.1) H 03/08/17 07:02 - Attending Attestation Patient with large gastric mass. Also cirrhotic with enlarged (mildly) spleen I examined this patient and my medical decision-making was reviewed with the Resident Physician. I agree with the documented findings, disposition and treatment plan as described except to the extent set forth below.
--- NOTE | 2017-03-11 15:39 | Internal Med Progress Note ---
Date of Encounter: 03/11/17 Time of Encounter: 10:30 - Assessment and plan (1) Gastric mass Current Visit: Yes Status: Acute Assessment and plan: s/p EGD showed gastric mass.. biopsies were done By inspection Pathologist and GI Dr. Ceballos mentioned it as adenocarcinoma Need to f/u on path results Heme Onc consulted.. Recommend to f/u with them as an out pt Cont close monitoring talked to the pt about these findings Reviewed CT of Abd / pelvis with no contrast - showed gastric mass, ?? Cirrhosis of Liver will obtain U/S of Liver Due to his CKD-3, will hold on CT with contrast can be done as an out pt after biopsy results.. if CT with contrast necessary for staging (2) Acute blood loss anemia Current Visit: Yes Status: Acute Assessment and plan: s/p EGD - Hb stable around 9.4...his baseline @ 10.2 cont close monitoring No need of PRBC transfusion now (3) Upper GI bleeding Current Visit: Yes Status: Acute Assessment and plan: due to Gastric ulcer cont PPI BID + Carafate Repeat EGD y/d showed stable clot over gastric ulcer schedule for f/u EGD today (4) Gastric ulcer Current Visit: Yes Status: Acute Qualifiers: Gastric ulcer chronicity: acute Gastric ulcer complication status: unspecified whether hemorrhage or perforation present Qualified Code(s): K25.3 - Acute gastric ulcer without hemorrhage or perforation (5) Acute kidney injury superimposed on CKD Current Visit: Yes Status: Acute Assessment and plan: mild MAHNAZ on CKD-3 improved close to his baseline d/c IVF (6) Rheumatoid arthritis Current Visit: Yes Status: Chronic Assessment and plan: Held methotrexate until he f/u with Heme Onc as an out pt talked to pt about this Qualifiers: Rheumatoid arthritis location: multiple sites Rheumatoid factor presence: unspecified presence Qualified Code(s): M06.9 - Rheumatoid arthritis, unspecified (7) CAD (coronary artery disease) Current Visit: Yes Status: Chronic Assessment and plan: held ASA / Anti platelet meds cont Coreg + Statin Qualifiers: Coronary Disease-Associated Artery/Lesion type: [place] artery [place] vs. transplanted heart: [place] heart Associated angina: angina presence unspecified Qualified Code(s): I25.10 - Atherosclerotic heart disease of [place] coronary artery without angina pectoris - Subjective Interval history: Mr. Morrison is a 62 year old male with medical history of CAD (open heart surgery with bypass in 2013 and stent placement 4), sleep apnea, HTN, HLD, GERD , COPD, and RA went for an elective EGD for his recurrent abdominal pain and recent weight loss. He found to have a large gastric ulcer with adherent massive clot. He was admitted here for acute GI bleed and anemia. He denies black stools, hematochezia, nausea, vomiting. Patient's hemoglobin was 9.4 on admission below his baseline of 13. He denied any CP / SOB / Abd pain today. Stated he is feeling little better now. Started on clear liquid diet y/d, which he tolerated well. No events over night. Had a BM this morning which looks like melena. - Constitutional Vitals: Temp Pulse Resp BP Pulse Ox 97.8 F 71 16 168/81 98 03/11/17 14:40 03/11/17 14:40 03/11/17 14:40 03/11/17 14:40 03/11/17 14:40 General appearance: Present: cooperative, A&O X 3, no acute distress, obese, answers questions appropriately - Head Head exam: Present: atraumatic, normal inspection - Neck Neck exam general surgery: Present: supple - Respiratory Respiratory exam: Present: decreased breath sounds. Absent: rales, respiratory distress, rhonchi, wheezes - Cardiovascular Cardiovascular exam: Present: RRR, +S1, +S2. Absent: systolic murmur - GI/Abdominal GI/Abdominal exam: Present: normal bowel sounds, soft. Absent: rebound, rigid, tenderness - Back Exam Back exam: Absent: CVA tenderness (L), CVA tenderness (R) - Psychiatric Psychiatric exam: Present: normal affect, normal mood Internal Medicine: Result - Labs CBC & Chem 7: 03/11/17 05:14 03/10/17 05:47 Labs: Short CBC 03/11/17 Range/Units 05:14 WBC 3.7 L (4.3-11.1) K/mcL Hgb 9.4 L (12.9-16.9) g/dL Hct 30.1 L (37.5-50.1) % Plt Count 117 L (140-400) K/mcL Neutrophils # 2.5 (1.6-8.9) K/mcL - ABG Interpretation ABG results: PT/INR, D-dimer PT 14.8 Seconds (9.4-12.1) H 03/08/17 07:02 - Impressions Impressions Abdomen/Pelvis CT 03/10/17 16:00 IMPRESSION: Hyperdense focus in the stomach is nonspecific and could represent a clot or possibly mass. Correlate with recent EGD. Slightly nodular contour of the liver is nonspecific but can be seen in the setting of cirrhosis. Additionally, the liver appears somewhat heterogeneous. Given the possible gastric mass, further evaluation with contrast-enhanced CT or ultrasound is recommended to evaluate for hepatic masses. Mild splenomegaly. Small volume free fluid in the pelvis. Mild stranding adjacent to the second portion of the duodenum in the right colon. This could represent focal inflammation (i.e. duodenitis/colitis), however, this could also be related to volume overload/portal hypertension. There is a 3.1 cm infrarenal abdominal aortic aneurysm. Follow-up recommendations as below. RECOMMENDATIONS: Managing Abdominal Aortic Aneurysms 3.0-3.4 cm: Every 3 years. *For abdominal aortas with maximum diameter of 2.6-2.9 cm meeting criteria for AAA (>50% of proximal normal segment). Reference: J Vasc Surg. 2008;50(4 Suppl):S2-49 D/ / 03/10/2017 17:39:37 Juwan Cabrera MD / Carri Crespo Interpreting Provider: Juwan Cabrera MD Consult Discharge Plan - Plan Referrals: NONE,PCP [Primary Care Provider] -
[2017-03-11 17:14] LABS: Hematocrit 29.7 % (37.5-50.1); Hemoglobin 9.4 g/dL (12.9-16.9)
[2017-03-11] MEDS ORDERED: *HR* OxyCODONE Immed Rel 5 MG TABLET PO PRN (17:20)
[2017-03-11] MEDS: amLODIPine 5 MG TABLET PO SCH (18:01)
[2017-03-12 08:16] VITALS: BP 142/80
[2017-03-12] MEDS: Folic Acid 1 MG TABLET PO SCH (09:16)
[2017-03-12] MEDS: amLODIPine 5 MG TABLET PO SCH (09:16)
--- NOTE | 2017-03-12 11:50 | Discharge Summary ---
Date of Encounter: 03/12/17 Time of Encounter: 11:45 - Discharge Diagnosis (1) Gastric mass Priority: Primary Status: Acute (2) Acute blood loss anemia Priority: Primary Status: Acute (3) Upper GI bleeding Priority: Primary Status: Acute (4) Gastric ulcer Priority: Primary Status: Acute Qualifiers: Gastric ulcer chronicity: acute Gastric ulcer complication status: unspecified whether hemorrhage or perforation present Qualified Code(s): K25.3 - Acute gastric ulcer without hemorrhage or perforation (5) Acute kidney injury superimposed on CKD Priority: Secondary Status: Acute (6) Rheumatoid arthritis Priority: Secondary Status: Chronic Qualifiers: Rheumatoid arthritis location: multiple sites Rheumatoid factor presence: unspecified presence Qualified Code(s): M06.9 - Rheumatoid arthritis, unspecified (7) CAD (coronary artery disease) Priority: Secondary Status: Chronic Qualifiers: Coronary Disease-Associated Artery/Lesion type: [place] artery [place] vs. transplanted heart: [place] heart Associated angina: angina presence unspecified Qualified Code(s): I25.10 - Atherosclerotic heart disease of [place] coronary artery without angina pectoris - Discharge Medications Prescriptions: OxyCODONE Immed Rel [Roxicodone 5 MG] 5 mg PO Q4HR PRN #20 tablet PRN Reason: Moderate Pain amLODIPine [Norvasc] 5 mg PO DAILY #30 tablet Losartan Potassium [Cozaar] 100 mg PO DAILY #30 tab Pantoprazole Sodium 40 mg PO BID #60 tablet. Sucralfate [Carafate] 1 gm PO QIDAC #120 udc Home Medications: Carvedilol [Coreg] 25 mg PO BID 03/07/17 [History] Folic Acid 1 mg PO BID 03/07/17 [History] Nitroglycerin 0.4 mg PO Q5M PRN 03/07/17 [History] Atorvastatin Calcium 40 mg PO HS #0 03/12/17 [Rx] Losartan Potassium [Cozaar] 100 mg PO DAILY #30 tab 03/12/17 [Rx] OxyCODONE Immed Rel [Roxicodone 5 MG] 5 mg PO Q4HR PRN #20 tablet 03/12/17 [Rx] Pantoprazole Sodium 40 mg PO BID #60 tablet. 03/12/17 [Rx] Sucralfate [Carafate] 1 gm PO QIDAC #120 udc 03/12/17 [Rx] amLODIPine [Norvasc] 5 mg PO DAILY #30 tablet 03/12/17 [Rx] Allergies/Adverse Reactions: 3 Allergy/AdvReac Type Severity Reaction Status Date / Time Amoxicillin [From Augmentin] AdvReac Gastrointestinal Verified 03/07/17 11:41 Upset clavulanic acid AdvReac Gastrointestinal Verified 03/07/17 11:41 [From Augmentin] Upset Procedures/tests Complete & Pending: Procedures Performed prior 72 hours Category Date Time Status CT abd pelvis wo no iv no oral [CT] Routine Cat Scan 03/10/17 16:00 Draft US liver [US] Routine Exams 03/12/17 09:00 Completed Date of admission: 03/07/17 15:53 Primary care physician: PCP NONE Consults: 03/07/17 15:56 Consult to On Line Csr [CONS] Routine Reason for SW Consult: Please assess patient for possible home needs for post -discharge planning. 03/07/17 15:57 Consult to Occupational Therapy [CONS] Routine Comment: Evaluate, develop and implement POC Reason for Consult: Patient reports he becomes dizzy w/ambulation. Please assess for strength, stability, safety, ambulation, and possible assistive needs for post-discharge planning. 03/07/17 15:58 Consult to Physical Therapy [CONS] Routine Comment: Evaluate, develop and implement POC Reason for Consult: Patient reports he becomes dizzy w/ambulation. Please assess for strength, stability, safety, ambulation, and possible assistive needs for post-discharge planning. 03/07/17 16:00 Consult to Nutrition [CONS] Routine Comment: Consulting Provider: NUTRITION Reason for Dietary Consult: MST Score 03/10/17 14:43 Consult to Oncology [CONS] Routine Consulting Provider: [facility] Reason for Consult: gastric mass: adenocarcinoma Call Completed: Yes 03/11/17 12:09 Consult to Nephrology [CONS] Routine Consulting Provider: Kidney Bren/MAGALYS/BERNY/LUCRETIA Reason for Consult: CKD, gastric mass. Would like to do CT abd/pelvis with contrast Call Completed: Yes - Patient Status Disposition: Home, Self-Care Condition: Good Overall status at discharge: patient is back to baseline - Discharge Instructions Follow Up With: Rhoda Yu MD [Non-Partnered Physician] - Kofi Tanner MD [Partnered Physician] - Miguel Monae MD [Partnered Physician] - Additional Instructions: Please see GI Dr. Tanner in 3-5 days [place] see Heme Onc Dr. Denton in 3-5 days - Diet and Activity Activity: increase activity as tolerated Diet: other (soft diet) Hospital course: Mr. Morrison is a 62 year old male with medical history of CAD (open heart surgery with bypass in 2013 and stent placement 4), sleep apnea, HTN, HLD, GERD , COPD, and RA went for an elective EGD for his recurrent abdominal pain and recent weight loss. He found to have a large gastric ulcer with adherent massive clot. He was admitted here for acute GI bleed and anemia. He denies black stools, hematochezia, nausea, vomiting. Patient's hemoglobin was 9.4 on admission below his baseline of 13. Pt was admitted in the hospital and placed him on NPO, Protonix IV BID and IV fluids. He did go for another EGD on showed gastric mass, suspecting for adenocarcinoma of stomach. Biopsies were taken - final report pending. His CT of Abd showed nodular contour - possible cirrhosis. I did U/S of lIver showed cirrhosis, no definitive mass, however not ruled out metastasis. Need further work up possible PET scan. Pt was seen by Heme Onc who recommend to f/u with them as an out pt to discuss about biopsy results and further care. His pain is tolerable with Oxycodone. His hB stayed stable @ 9.5. So [place] d/c him home in stable condition today. - Time Spent with Patient Total time spent providing and/or coordinating discharge services: - Constitutional Vitals: Temp Pulse Resp BP Pulse Ox 98.7 F 72 16 142/80 98 03/12/17 08:13 03/12/17 08:13 03/12/17 08:13 03/12/17 08:13 03/12/17 08:13 General appearance: Present: cooperative, A&O X 3, no acute distress, obese, answers questions appropriately - Head Head exam: Present: atraumatic - Respiratory Respiratory exam: Present: accessory muscle use. Absent: respiratory distress, rhonchi, wheezes - Cardiovascular Cardiovascular exam: Present: RRR, +S1, +S2. Absent: systolic murmur - GI/Abdominal GI/Abdominal exam: Present: soft. Absent: rebound, rigid, tenderness - Extremities Exam Extremities exam: Absent: calf tenderness, pedal edema, tenderness - Back Exam Back exam: Absent: CVA tenderness (L), CVA tenderness (R) - Psychiatric Psychiatric exam: Present: normal affect, normal mood
== END 2017-03-12 13:46 | disposition home or self-care (01) | DRG 374 ==
LOC: SUATTDRO → ENDPAV 10:46 → 3ANU 14:24 → ENDPAV 14:24 → 3ANU 15:53
PROVIDERS: ADMIT Nurse Practitioner Family; ATTEND Family Medicine

== ENCOUNTER 2017-04-20 13:22 | Inpatient (IN) ==
[2017-04-20] MEDS ORDERED: Pantoprazole 80 MG in 0.9 % Sodium Chloride 50 ML IVPB ONE (13:46)
[2017-04-20] MEDS: 0.9 % Sodium Chloride 1,000 ML IVC ONE ×2 (13:58→20:39)
[2017-04-20] MEDS ORDERED: Pantoprazole 80 MG in 0.9 % Sodium Chloride 250 ML IVPB ONE (14:15)
[2017-04-20 14:36] LABS: INR 1.4; Prothrombin Time 15.7 Seconds (9.4-12.1)
[2017-04-20 14:39] LABS: Activated Partial Thrombo Time 26.6 Seconds (26.0-36.0)
[2017-04-20 14:52] LABS: Basophils % 0.3 %; Eosinophils # 0.1 K/mcL (0.0-0.6); Eosinophils % 1.4 %; Hematocrit 16.9 % (37.5-50.1); Immature Granulocytes % 0.3 % (0-4); Immature Platelets 1.9 % (1.1-6.1); Lymphocytes # 1.1 K/mcL (0.6-4.6); Lymphocytes % 18.1 %; Mean Corpuscular HGB Conc 29.6 g/dL (31.6-35.5); Mean Corpuscular Hemoglobin 26.6 pg (28.0-33.3); Mean Corpuscular Volume 89.9 fL (83.0-100.0); Mean Platelet Volume 10.7 fL (9.4-12.4); Monocytes # 0.4 K/mcL (0.0-1.3); Monocytes % 7.2 %; Neutrophils # 4.3 K/mcL (1.6-8.9); Nucleated Red Blood Cells 0.5 /100 WBC (0); Platelet Count 178 K/mcL (140-400); Red Blood Count 1.88 M/mcL (4.19-5.50); Red Cell Distribution Width 18.4 % (11.5-14.5); Segmented Neutrophils % 72.7 %
[2017-04-20 15:20] LABS: Anisocytosis 1+ (Not Present); Platelet Estimate Normal (Normal)
[2017-04-20 15:21] LABS: Burr Cells 1+ (Not Present); Hypochromasia Present (Not Present); Microcytosis Present (Not Present); Poikilocytosis 2+ (Not Present)
[2017-04-20 15:22] LABS: Schistocytes 1+ (Not Present)
--- NOTE | 2017-04-20 15:31 | Emergency Department Note ---
Disposition Clinical Impression: GI bleed Qualifiers: GI bleed type/associated pathology: melena Qualified Code(s): K92.1 - Melena Gastric cancer Qualifiers: Malignant neoplasm of stomach location: unspecified location Qualified Code(s) : C16.9 - Malignant neoplasm of stomach, unspecified Anemia Qualifiers: Anemia type: unspecified type Qualified Code(s): D64.9 - Anemia, unspecified Disposition: Admitted As Inpatient Condition: Fair General Adult HPI - General Chief complaint: ED Recheck/Abnormal Lab/Rx Stated complaint: Active GI Bleed, anemia Time Seen by Provider: 04/20/17 13:24 Source: patient, EMS Mode of arrival: EMS Limitations: no limitations Nursing Notes Reviewed: Yes Vital Signs Reviewed: Yes - History of Present Illness HPI Narrative: 62-year-old male with recent diagnosis of gastric cancer presents for evaluation of weakness and anemia. Patient was seen at the [facility] prior to arrival. Patient states he has generalized weakness. The patient's labs at the [facility] showed hemoglobin 4.9. Patient reports dark stools for the past 2 weeks. Patient denies any abdominal pain. Patient denies any chest pain. Patient does note some dyspnea with exertion. Patient was scoped at [place] in the past month. Patient was also evaluated at [facility] for concerns of liver metastases. Patient states that he was currently started on oral chemotherapy but had stopped. Patient denies any nausea or vomiting. Denies being on any type of blood thinners or antiplatelets. Pain Scale: 0 - Related Data Home Medications Medication Instructions Recorded Confirmed Folic Acid 1 mg PO DAILY 03/07/17 04/20/17 Nitroglycerin 0.4 mg PO Q5M PRN 03/07/17 04/20/17 Losartan Potassium [Cozaar] 100 mg PO DAILY 03/30/17 04/20/17 Atorvastatin Calcium 80 mg PO HS 04/20/17 04/20/17 Capecitabine [Xeloda] 1,500 mg PO BID 04/20/17 04/20/17 Carvedilol 12.5 mg PO BID 04/20/17 04/20/17 Docusate [Colace] 100 mg PO BID 04/20/17 04/20/17 Ferrous Sulfate 140 mg PO DAILY 04/20/17 04/20/17 Sucralfate [Carafate] 1 gm PO Q6H 04/20/17 04/20/17 Tamsulosin [Flomax] 0.4 mg PO DAILY 04/20/17 04/20/17 Previous Rx's Medication Instructions Recorded Pantoprazole Sodium 40 mg PO BID #60 tablet. 03/12/17 amLODIPine [Norvasc] 5 mg PO DAILY #30 tablet 03/12/17 Megestrol Acetate [Megace] 800 mg PO DAILY #400 mls 03/30/17 OxyCODONE Immed Rel [Roxicodone 5 10 mg PO Q8HR PRN #120 tablet 03/30/17 MG] Ondansetron HCl [Zofran] 4 mg PO Q6H PRN #60 tablet 04/14/17 Prochlorperazine Maleate 10 mg PO Q8HR PRN #60 tablet 04/14/17 [Compazine] Allergies Allergy/AdvReac Type Severity Reaction Status Date / Time Amoxicillin [From Augmentin] AdvReac Gastrointestinal Verified 04/20/17 12:00 Upset clavulanic acid AdvReac Gastrointestinal Verified 04/20/17 12:00 [From Augmentin] Upset All systems ED: reviewed and negative except as stated. Constitutional: Reports: as per HPI. Denies: fever Eyes: Reports: as per HPI ENT ED: Reports: as per HPI Cardiovascular: Reports: as per HPI Respiratory: Reports: as per HPI. Denies: cough, dyspnea Gastrointestinal: Reports: as per HPI. Denies: abdominal pain, nausea, vomiting Genitourinary: Reports: as per HPI Musculoskeletal: Reports: as per HPI Integumentary: Reports: as per HPI Neurological: Reports: as per HPI, weakness Psychiatric: Reports: as per HPI Past Medical History - Past Medical History Medical history: Reports: coronary artery disease, GERD, GI bleed, hyperlipidemia, hypertension, RA, renal disease Surgical history: Reports: angioplasty/stent (x4), appendectomy, coronary bypass (CABG) (Double bypass in 2013), vasectomy Psychiatric history: Reports: no psych history - Social History Smoking Status: Former smoker Alcohol use: Reports: none Drug use: Reports: none Physical Exam - General Limitations: no limitations General appearance: alert, in no apparent distress, other (pale) - Head Head exam: atraumatic, normocephalic, normal inspection - Eye Eye exam: Present: normal appearance. Absent: scleral icterus - ENT ENT exam: normal exam - Neck Neck exam: Present: normal inspection. Absent: trachea midline - Chest Chest inspection: Present: normal inspection - Respiratory Respiratory exam: Present: normal lung sounds bilaterally. Absent: respiratory distress - Cardiovascular Cardiovascular exam: Present: regular rate, normal rhythm. Absent: systolic murmur - Abdominal Exam Abdominal exam: Present: soft, Non-Tender - Rectal Exam Rn Iv Therapy present during exam: Yes Rectal exam: Present: normal inspection, black stool. Absent: bloody stool, hemorrhoids, tenderness - Extremities Exam Extremities exam: Present: normal inspection. Absent: pedal edema - Back Exam Back exam: Present: normal inspection - Neurological Exam Neurological exam: Present: alert, oriented X3 - Skin Skin exam: Present: warm, dry, intact, normal color Course Course Narrative: Patient seen and examined upon arrival. Patient was hypotensive with systolic blood pressures in the 70s. Patient was mentating appropriately. Patient will get 2 IVs placed, resuscitation with blood products. Patient also get coagulation studies EKG and resuscitation monitoring. - Reevaluation(s) Reevaluation #1: Patient seen and examined. Patient has the unit of blood hanging. Patient remains borderline hypotensive. Patient stool guaiac shows dark stools but no active bright red blood. Time: 15:31 - Consultations Consultation #1: Spoke with Dr. Ceballos who performed endoscopy on 03/17. Stated the patient will be likely admitted to the ICU. Time: 15:31 Vital Signs Temperature 98.0 F 04/20/17 13:23 Pulse Rate 73 04/20/17 13:23 Respiratory Rate 18 04/20/17 13:23 Blood Pressure 80/50 04/20/17 13:23 O2 Sat by Pulse Oximetry 98 04/20/17 13:23 Temperature 98.3 F 04/20/17 15:35 Pulse Rate 80 04/20/17 16:06 Respiratory Rate 16 04/20/17 16:28 Blood Pressure 112/64 04/20/17 16:28 O2 Sat by Pulse Oximetry 100 04/20/17 16:06 Oxygen Delivery Oxygen Delivery Room Air Medical Decision Making - MDM Narrative Medical decision making narrative: 62-year-old male process for evaluation of anemia. Patient was seen at the cancer clinic. Patient likely has a GI bleed. Patient does have gastric cancer. Patient's hemoglobin was low with positive occult blood. Patient was transfused in the emergency department. Patient's blood pressure responded. Given the nature of the patient's hypotension patient would need close observation was admitted the ICU. Spoke with the GI doctor who performed endoscopy approximately a month ago. He will be admitted. - Lab Data Lab results reviewed: Yes I reviewed the patient's lab results. Result diagrams: 04/20/17 14:33 04/20/17 14:14 Lab Results 04/20/17 04/20/17 04/20/17 Range/Units 14:14 14:14 14:14 WBC (4.3-11.1) K/mcL RBC (4.19-5.50) M/mcL Hgb (12.9-16.9) g/dL Hct (37.5-50.1) % MCV (83.0-100.0) fL MCH (28.0-33.3) pg MCHC (31.6-35.5) g/dL RDW (11.5-14.5) % Plt Count (140-400) K/mcL MPV (9.4-12.4) fL Immature Gran % (0-4) % Seg Neutrophils % % Lymphocytes % % Monocytes % % Eosinophils % % Basophils % % Neutrophils # (1.6-8.9) K/mcL Lymphocytes # (0.6-4.6) K/mcL Monocytes # (0.0-1.3) K/mcL Eosinophils # (0.0-0.6) K/mcL Basophils # (0.0-0.2) K/mcL Nucleated RBCs/100 WBC (0) /100 WBC Platelet Estimate (Normal) Immature Plt Fraction (1.1-6.1) % Hypochromasia (Not Present) Poikilocytosis (Not Present) Anisocytosis (Not Present) Microcytosis (Not Present) [place] Cells (Not Present) Schistocytes (Not Present) PT 15.7 H (9.4-12.1) Seconds INR 1.4 APTT 26.6 (26.0-36.0) Seconds Sodium 140 (136-145) mEq/L Potassium 4.8 (3.5-5.1) mEq/L Chloride 118 H (98-107) mEq/L Carbon Dioxide 15 L (23-29) mEq/L BUN 41 H (8-23) mg/dL Creatinine 2.39 H (0.70-1.30) mg/dL Est GFR ( Amer) 33 L (> 60) Est GFR (Non-Af Amer) 28 L (> 60) BUN/Creatinine Ratio 17 (6-26) Glucose 112 H (70-105) mg/dL Calculated Osmolality 301 H (280-300) Lactic Acid (0.5-2.2) mmol/L Calcium 7.3 L (8.6-10.3) mg/dL Magnesium 2.0 (1.6-2.6) mg/dL Total Bilirubin 0.6 (0.3-1.0) mg/dL AST 38 (13-39) Units/L ALT 23 (7-52) Units/L Alkaline Phosphatase 172 H (34-104) Units/L Troponin I < 0.03 (< 0.04) ng/mL Serum Total Protein 6.4 (6.4-8.9) g/dL Albumin 2.0 L (3.5-5.7) g/dL Globulin 4.4 H (2.4-3.5) g/dL Albumin/Globulin Ratio 0.5 L (1.1-2.2) Specimen Rejected 04/20/17 04/20/17 04/20/17 Range/Units 14:14 14:33 14:33 WBC 5.9 (4.3-11.1) K/mcL RBC 1.88 L (4.19-5.50) M/mcL Hgb 5.0 L* (12.9-16.9) g/dL Hct 16.9 L (37.5-50.1) % MCV 89.9 (83.0-100.0) fL MCH 26.6 L (28.0-33.3) pg MCHC 29.6 L (31.6-35.5) g/dL RDW 18.4 H (11.5-14.5) % Plt Count 178 (140-400) K/mcL MPV 10.7 (9.4-12.4) fL Immature Gran % 0.3 (0-4) % Seg Neutrophils % 72.7 % Lymphocytes % 18.1 % Monocytes % 7.2 % Eosinophils % 1.4 % Basophils % 0.3 % Neutrophils # 4.3 (1.6-8.9) K/mcL Lymphocytes # 1.1 (0.6-4.6) K/mcL Monocytes # 0.4 (0.0-1.3) K/mcL Eosinophils # 0.1 (0.0-0.6) K/mcL Basophils # 0.0 (0.0-0.2) K/mcL Nucleated RBCs/100 WBC 0.5 H (0) /100 WBC Platelet Estimate Normal (Normal) Immature Plt Fraction 1.9 (1.1-6.1) % Hypochromasia Present A (Not Present) Poikilocytosis 2+ A (Not Present) Anisocytosis 1+ A (Not Present) Microcytosis Present A (Not Present) [place] Cells 1+ A (Not Present) Schistocytes 1+ A (Not Present) PT (9.4-12.1) Seconds INR APTT (26.0-36.0) Seconds Sodium (136-145) mEq/L Potassium (3.5-5.1) mEq/L Chloride (98-107) mEq/L Carbon Dioxide (23-29) mEq/L BUN (8-23) mg/dL Creatinine (0.70-1.30) mg/dL Est GFR ( Amer) (> 60) Est GFR (Non-Af Amer) (> 60) BUN/Creatinine Ratio (6-26) Glucose (70-105) mg/dL Calculated Osmolality (280-300) Lactic Acid 1.9 (0.5-2.2) mmol/L Calcium (8.6-10.3) mg/dL Magnesium (1.6-2.6) mg/dL Total Bilirubin (0.3-1.0) mg/dL AST (13-39) Units/L ALT (7-52) Units/L Alkaline Phosphatase (34-104) Units/L Troponin I (< 0.04) ng/mL Serum Total Protein (6.4-8.9) g/dL Albumin (3.5-5.7) g/dL Globulin (2.4-3.5) g/dL Albumin/Globulin Ratio (1.1-2.2) Specimen Rejected Clotted S.B.A.R. - S.B.A.R. Situation: Demographics Background: Presenting Complaint Assessment: Vital Signs, Course and respsone to treatment, Patient/Family Expectation Recommendation: Barrier(s) to disposition, Recommendation based on pending studies, treatments, or consults Jimi Report Given to: Intensivists Jimi Repor Time: 15:46 Attestation Statement - Attestation Attestation: I examined this patient and my medical decision-making was reviewed with the Resident Physician. I agree with the documented findings, disposition and treatment plan as described except to the extent set forth below. 62-year-old male presents to the emergency department because of weakness, anemia and GI bleeding. He was recently diagnosed with gastric cancer with metastasis to liver. He had endoscopy here by Dr. Ceballos as well as at [facility]. He had dark colored stools for the past couple days. He was seen today by his oncologist and his hemoglobin of 4.5 prompting them to send him to the emergency department. He complains of exertional dyspnea and moderate fatigue. He denies fevers or chills. No productive cough. No chest pain. No abdominal pain. Patient is awake alert but very pale. Appears fatigued. Oropharynx is clear, . Neck is regarding his membranes are moistsupple. Chest is clear to auscultation bilaterally. conjunctiva are pale. Neck is supple. Trachea midline. Chest clear to auscultation bilaterally. Abdomen soft, nondistended nontender. Rectal exam reveals dark black stool. Blood pressure was low on arrival he was given sequential boluses of IV saline with transient improvement. Blood products within started with 2 units of packed red blood cells after type and crossing. Blood pressure remained marginal. He will be admitted to critical care unit. Dr. Ceballos was notified He was seen in the emergency department by critical care services for admission. The high probability of a clinically significant, sudden or life threatening deterioration of the [cardiopulmonary] system(s) required my full and direct attention, intervention and personal management. The aggregate critical care time was [32] minutes. This time is in addition to time spent performing reported procedures but includes the following: [x] Data Review and interpretation [x] Patient assessment and monitoring of vital signs [x] Documentation [x] Medication orders and management
[2017-04-20 16:03] LABS: Albumin/Globulin Ratio 0.5 (1.1-2.2); Bilirubin,Total 0.6 mg/dL (0.3-1.0); Calcium 7.3 mg/dL (8.6-10.3); Globulin 4.4 g/dL (2.4-3.5); Potassium 4.8 mEq/L (3.5-5.1); Total Protein 6.4 g/dL (6.4-8.9)
[2017-04-20] MEDS ORDERED: Naloxone 0.4 MG/ML INJ IVP PRN (16:09)
[2017-04-20] MEDS ORDERED: *HR* Morphine 2 MG/ML SYRINGE IVP PRN (16:09)
[2017-04-20] MEDS ORDERED: Ondansetron 4 MG/2 ML VIAL IVP PRN (16:09)
[2017-04-20] MEDS ORDERED: Acetaminophen 325 MG TABLET PO PRN (16:09)
--- NOTE | 2017-04-20 16:13 | Pulmonology History & Physical ---
<MichazeinabMateo gongora - Last Filed: 04/20/17 16:52> Date of Encounter: 04/20/17 Time of Encounter: 16:08 Assessment and Plan (1) GI bleed Current visit: Yes Status: Acute - Patient admits to 2 weeks of dark tarry stools. - Decreased H&H of 4.9/16.1 on presentation to emergency room - Etiology of known gastric adenoma with 3mm ulcer discovered on EGD in February 2017 - Patient currently receiving 4 units of packed red blood cells and emergency department - GI consulted, appreciate recommendations Plan - Protonix gtt - 4 units PRBC - GI consult - Repeat CBC this evening Qualifiers: GI bleed type/associated pathology: melena Qualified Code(s): K92.1 - Melena (2) Gastric cancer Current visit: Yes Status: Chronic - Known history of gastric adenoma, moderately differentiated - Sees [facility] oncology with most recent appointment this afternoon Plan -Management as outpatient per oncology - Hold chemo while inpatient Qualifiers: Malignant neoplasm of stomach location: unspecified location Qualified Code (s): C16.9 - Malignant neoplasm of stomach, unspecified (3) Acute blood loss anemia Current visit: Yes Status: Acute H/H of 5.0/16.9 most recently in ED getting 4 units PRBCs Further management as above. (4) Acute kidney injury superimposed on CKD Current visit: Yes Status: Acute BUN/Cr of 41/2.39 -Baseline Cr of 1.6-1.8 - Possible etiology of blood loss vs dehydration vs hypotension Plan Continue to monitor and hydrate Transfusions Avoid nephrotoxic medications (5) CAD (coronary artery disease) Current visit: Yes Status: Chronic No active complaints chest pain Monitor for increased oxygen demands with blood loss Qualifiers: Coronary Disease-Associated Artery/Lesion type: [place] artery [place] vs. transplanted heart: [place] heart Associated angina: angina presence unspecified Qualified Code(s): I25.10 - Atherosclerotic heart disease of [place] coronary artery without angina pectoris (6) HLD (hyperlipidemia) Current visit: Yes Status: Chronic Continue statin therapy Qualifiers: Hyperlipidemia type: pure hypercholesterolemia Qualified Code(s): E78.00 - Pure hypercholesterolemia, unspecified; E78.0 - Pure hypercholesterolemia (7) HTN (hypertension) Current visit: Yes Status: Chronic Pressure has been mildly hypotensive in the setting of acute blood loss Holding blood pressure medications, Blood pressure currently well-controlled Qualifiers: Hypertension type: essential hypertension Qualified Code(s): I10 - Essential (primary) hypertension (8) DVT prophylaxis Current visit: Yes Status: Acute Holding heparin and anticoagulation for acute GI blood loss SCDs for DVT prophylaxis History of Present Illness Chief complaint: weakness HPI: Mr. Morrison is a 62 year old male with past medical history of gastric cancer currently on oral chemotherapy presented tumors from a complaint of weakness. Additional past medical history includes CAD, GERD, hyperlipidemia, hypertension , rheumatoid arthritis, CKD. He was seen at cancer center earlier this today or labs were significant for a hemoglobin of 4.9. He was instructed to present to the emergency department. States that he has been experiencing black, tarry stools for the past 2 weeks however he did not think much of it. He also states that he has been feeling weak in this time period as well as some mild dyspnea on exertion. He denies any symptoms of chest pain, shortness of breath at rest, abdominal pain. He does state that he has been experiencing nausea and one episode of vomiting this morning but states that it did not continue blood and obtained only gastric contents. Denies being on any blood thinners or antiplatelet medication. Per oncology note, he has previously been taking capeitabine for his gastric cancer. History of moderately diff adenocarcinoma first diagnosed 03/10/17. Presentation to the emergency department, vital signs are significant for hypotension 80/50. No evidence of tachycardia. Labs are significant for H/H of 4.9/16.9, baseline hemoglobin around 9. BUN/creatinine of 41/2.39, baseline creatinine around 1.6-1.8. Stool occult was positive emergency room. Patient was started on Protonix drip and is currently transfusing 4 units of packed red blood cells. The pressure has improved with fluids and blood transfusions. Will be admitted to ICU for further care and management. Gastroenterology, Dr. Ceballos, was consulted emergency departments and agreed to see him. Past Med Surg Social Fam HX - Past Medical History Medical history: coronary artery disease, GERD, GI bleed, hyperlipidemia, hypertension, RA, renal disease Psychiatric history: no psych history - Past Surgical History Surgical History: angioplasty/stent (x4), appendectomy, coronary bypass (CABG) ( Double bypass in 2013), vasectomy - Social History Smoking Status: Former smoker Alcohol use: none Drug use: none - Family History Father Family Member Ethnicity: Non- Living Status: Hx Family Cardiac Disorders: Yes ([place], CAD, HTN) Mother Family Member Ethnicity: Non- Living Status: Still Living Brother Family Member Ethnicity: Non- Living Status: Hx Family Cardiac Disorders: Yes ([place], CAD, HTN) Sister Family Member Ethnicity: Non- Living Status: Still Living Medications and Allergies Folic Acid 1 mg PO DAILY 03/07/17 [History] Nitroglycerin 0.4 mg PO Q5M PRN 03/07/17 [History] Pantoprazole Sodium 40 mg PO BID #60 tablet. 03/12/17 [Rx] amLODIPine [Norvasc] 5 mg PO DAILY #30 tablet 03/12/17 [Rx] Losartan Potassium [Cozaar] 100 mg PO DAILY 03/30/17 [History] Megestrol Acetate [Megace] 800 mg PO DAILY #400 mls 03/30/17 [Rx] OxyCODONE Immed Rel [Roxicodone 5 MG] 10 mg PO Q8HR PRN #120 tablet 03/30/17 [Rx ] Ondansetron HCl [Zofran] 4 mg PO Q6H PRN #60 tablet 04/14/17 [Rx] Prochlorperazine Maleate [Compazine] 10 mg PO Q8HR PRN #60 tablet 04/14/17 [Rx] Atorvastatin Calcium 80 mg PO HS 04/20/17 [History] Capecitabine [Xeloda] 1,500 mg PO BID 04/20/17 [History] Carvedilol 12.5 mg PO BID 04/20/17 [History] Docusate [Colace] 100 mg PO BID 04/20/17 [History] Ferrous Sulfate 140 mg PO DAILY 04/20/17 [History] Sucralfate [Carafate] 1 gm PO Q6H 04/20/17 [History] Tamsulosin [Flomax] 0.4 mg PO DAILY 04/20/17 [History] 3 Allergy/AdvReac Type Severity Reaction Status Date / Time Amoxicillin [From Augmentin] AdvReac Gastrointestinal Verified 04/20/17 12:00 Upset clavulanic acid AdvReac Gastrointestinal Verified 04/20/17 12:00 [From Augmentin] Upset All Systems: A 10-system review of systems was performed and is negative for pertinent findings except as documented above in the HPI. - Constitutional Constitutional: fatigue, weakness - Cardiovascular Cardiovascular: no chest pain, no diaphoresis, no dyspnea, no dyspnea on exertion - Respiratory Respiratory: no cough, no dyspnea, no dyspnea on exertion - Gastrointestinal Gastrointestinal: melena, nausea, vomiting, no abdominal pain, no cramping, no diarrhea - Neurological Neurological: weakness Physical Examination Vital Signs: Vital Signs, Last 4 Hours Temp Pulse Resp BP Pulse Ox 04/20/17 16:06 80 16 123/71 100 04/20/17 15:35 98.3 F 80 18 79/47 100 04/20/17 15:25 98.3 F 80 22 77/37 100 04/20/17 15:14 98.3 F 79 16 92/49 98 04/20/17 14:59 76 16 85/40 100 04/20/17 14:45 98.1 F 78 16 85/40 100 04/20/17 14:20 98.1 F 78 22 93/51 100 04/20/17 14:06 79 22 92/53 100 04/20/17 13:43 76 18 79/49 100 04/20/17 13:23 98.0 F 73 18 80/50 98 General appearance: no acute distress, alert Eyes: nonicteric ENT: oropharynx moist Effort: normal Inspection: normal Cardiovascular: regular rate and rhythm Gastrointestinal: normoactive bowel sounds, soft, tender, non-distended Results - Laboratory Findings CBC and BMP: 04/20/17 14:33 04/20/17 14:14 PT/INR, D-dimer PT 15.7 Seconds (9.4-12.1) H 04/20/17 14:14 Abnormal lab findings: Abnormal lab results RBC 1.88 M/mcL (4.19-5.50) L 04/20/17 14:33 Hgb 5.0 g/dL (12.9-16.9) L* 04/20/17 14:33 Hct 16.9 % (37.5-50.1) L 04/20/17 14:33 MCH 26.6 pg (28.0-33.3) L 04/20/17 14:33 MCHC 29.6 g/dL (31.6-35.5) L 04/20/17 14:33 RDW 18.4 % (11.5-14.5) H 04/20/17 14:33 Nucleated RBCs/100 WBC 0.5 /100 WBC (0) H 04/20/17 14:33 Hypochromasia Present (Not Present) A 04/20/17 14:33 Poikilocytosis 2+ (Not Present) A 04/20/17 14:33 Anisocytosis 1+ (Not Present) A 04/20/17 14:33 Microcytosis Present (Not Present) A 04/20/17 14:33 Toribio Cells 1+ (Not Present) A 04/20/17 14:33 Schistocytes 1+ (Not Present) A 04/20/17 14:33 PT 15.7 Seconds (9.4-12.1) H 04/20/17 14:14 Chloride 118 mEq/L (98-107) H 04/20/17 14:14 Carbon Dioxide 15 mEq/L (23-29) L 04/20/17 14:14 BUN 41 mg/dL (8-23) H 04/20/17 14:14 Creatinine 2.39 mg/dL (0.70-1.30) H 04/20/17 14:14 Est GFR ( Amer) 33 (> 60) L 04/20/17 14:14 Est GFR (Non-Af Amer) 28 (> 60) L 04/20/17 14:14 Glucose 112 mg/dL (70-105) H 04/20/17 14:14 Calculated Osmolality 301 (280-300) H 04/20/17 14:14 Calcium 7.3 mg/dL (8.6-10.3) L 04/20/17 14:14 Alkaline Phosphatase 172 Units/L (34-104) H 04/20/17 14:14 Albumin 2.0 g/dL (3.5-5.7) L 04/20/17 14:14 Globulin 4.4 g/dL (2.4-3.5) H 04/20/17 14:14 Albumin/Globulin Ratio 0.5 (1.1-2.2) L 04/20/17 14:14 Stool Occult Blood Positive (Negative) A 04/20/17 Unknown <Alvin Haines - Last Filed: 04/20/17 21:19> Date of Encounter: 04/20/17 History of Present Illness HPI: Mr. Morrison is a 62 year old male All Systems: A 10-system review of systems was performed and is negative for pertinent findings except as documented above in the HPI. Physical Examination Vital Signs: Vital Signs, Last 4 Hours Temp Pulse Resp BP Pulse Ox 04/20/17 21:00 80 14 133/74 100 04/20/17 20:49 98.1 F 81 18 93 04/20/17 20:44 99.1 F 04/20/17 20:34 98.3 F 79 18 99/56 99 04/20/17 20:12 98.1 F 77 14 118/75 04/20/17 20:00 87 14 125/74 93 04/20/17 19:15 78 16 106/74 100 04/20/17 18:00 80 18 125/73 100 04/20/17 17:47 97.8 F 80 18 101/72 100 04/20/17 17:32 97.7 F 80 18 117/48 Results - Laboratory Findings CBC and BMP: 04/20/17 14:33 04/20/17 14:14 PT/INR, D-dimer PT 15.7 Seconds (9.4-12.1) H 04/20/17 14:14 Abnormal lab findings: Abnormal lab results RBC 1.88 M/mcL (4.19-5.50) L 04/20/17 14:33 Hgb 5.0 g/dL (12.9-16.9) L* 04/20/17 14:33 Hct 16.9 % (37.5-50.1) L 04/20/17 14:33 MCH 26.6 pg (28.0-33.3) L 04/20/17 14:33 MCHC 29.6 g/dL (31.6-35.5) L 04/20/17 14:33 RDW 18.4 % (11.5-14.5) H 04/20/17 14:33 Nucleated RBCs/100 WBC 0.5 /100 WBC (0) H 04/20/17 14:33 Hypochromasia Present (Not Present) A 04/20/17 14:33 Poikilocytosis 2+ (Not Present) A 04/20/17 14:33 Anisocytosis 1+ (Not Present) A 04/20/17 14:33 Microcytosis Present (Not Present) A 04/20/17 14:33 [place] Cells 1+ (Not Present) A 04/20/17 14:33 Schistocytes 1+ (Not Present) A 04/20/17 14:33 PT 15.7 Seconds (9.4-12.1) H 04/20/17 14:14 Chloride 118 mEq/L (98-107) H 04/20/17 14:14 Carbon Dioxide 15 mEq/L (23-29) L 04/20/17 14:14 BUN 41 mg/dL (8-23) H 04/20/17 14:14 Creatinine 2.39 mg/dL (0.70-1.30) H 04/20/17 14:14 Est GFR ( Amer) 33 (> 60) L 04/20/17 14:14 Est GFR (Non-Af Amer) 28 (> 60) L 04/20/17 14:14 Glucose 112 mg/dL (70-105) H 04/20/17 14:14 POC Glucose 116 (58-89) H 04/20/17 19:27 Calculated Osmolality 301 (280-300) H 04/20/17 14:14 Calcium 7.3 mg/dL (8.6-10.3) L 04/20/17 14:14 Alkaline Phosphatase 172 Units/L (34-104) H 04/20/17 14:14 Albumin 2.0 g/dL (3.5-5.7) L 04/20/17 14:14 Globulin 4.4 g/dL (2.4-3.5) H 04/20/17 14:14 Albumin/Globulin Ratio 0.5 (1.1-2.2) L 04/20/17 14:14 Stool Occult Blood Positive (Negative) A 04/20/17 Unknown - Attending Attestation I saw the patient with the resident agree with History and Physical exam findings. Labs and Radiology were reviewed [employer]OL[employer] DIPPER: Patient is conscious oriented x 3 NECK : No JVD appreciated Pulmonary : Patient doesnt have any known pulmonary disease no v/q mismatch patient is on room air. Cardiac : Hemodynamically stable now responded to volume resuscitation. Nutrition/GI: Patient is NPO with PPI infusion patient is coming with GI bleed due to gastric cancer on chemotherapy spoke with will scope tomorrow. To get one more large bore IV Renal : labs reviewed Acute on Chronic Kidney injury expected to improve after volume resuscitation Heme onc : labs reviewed Acute on chronic blood loss , blood loss anemia will recheck after resuscitation with blood ID : No acute ID issues Musculo skeletal / skin issues : No Acute issues Disposition : Critically ill high chance of worsening GI bleed Code status: Full Code Family/POA: Didnt meet any family today .
[2017-04-20] MEDS ORDERED: Pantoprazole 40 MG in 0.9 % Sodium Chloride Mini Bag 100 ML IVC SCH (16:15)
[2017-04-20] MEDS ORDERED: *HR* OxyCODONE Immed Rel 5 MG TABLET PO PRN (16:38)
[2017-04-20] MEDS ORDERED: 0.9 % Sodium Chloride 250 ML ONE (17:11)
[2017-04-20] MEDS ORDERED: 0.9 % Sodium Chloride 1,000 ML ONE (20:18)
[2017-04-21 01:05] LABS: Basophils % 0.6 %; Eosinophils # 0.1 K/mcL (0.0-0.6); Eosinophils % 1.6 %; Hematocrit 24.1 % (37.5-50.1); Hemoglobin 7.8 g/dL (12.9-16.9); Immature Granulocytes % 0.4 % (0-4); Lymphocytes # 1.4 K/mcL (0.6-4.6); Lymphocytes % 19.9 %; Mean Corpuscular HGB Conc 32.4 g/dL (31.6-35.5); Mean Corpuscular Volume 86.4 fL (83.0-100.0); Mean Platelet Volume 9.9 fL (9.4-12.4); Monocytes # 0.5 K/mcL (0.0-1.3); Monocytes % 7.7 %; Neutrophils # 4.8 K/mcL (1.6-8.9); Platelet Count 163 K/mcL (140-400); Red Blood Count 2.79 M/mcL (4.19-5.50); Red Cell Distribution Width 16.4 % (11.5-14.5); Segmented Neutrophils % 69.8 %
[2017-04-21 06:25] LABS: Hematocrit 23.7 % (37.5-50.1); Hemoglobin 7.4 g/dL (12.9-16.9)
--- NOTE | 2017-04-21 08:03 | Electrocardiograph Report ---
[facility] [employer] [facility] Test Date: 2017-04-20 Pat Name: Akhil Morrison Department: 102 Room: 12 Gender: M Palliative Care Coordinator: Evgeny : 1955 Requested By: Victor Hugo Mendiola Order Number: [id number] Reading MD: Raghav Luis DO Measurements Intervals [place] Rate: 74 P: 23 RI: 154 QRS: 4 QRSD: 79 T: -2 QT: 394 QTc: 421 Interpretive Statements SINUS RHYTHM Electronically Signed On 04-21-2017 6:18:43 EST by Raghav Luis DO
[2017-04-21] MEDS ORDERED: Folic Acid 1 MG TABLET PO SCH (09:00)
[2017-04-21] MEDS ORDERED: Ferrous Sulfate Oral Soln 300 MG/5 ML UDC PO SCH (09:00)
[2017-04-21] MEDS ORDERED: *HR* Morphine 2 MG/ML SYRINGE IVP PRN (09:04)
[2017-04-21] MEDS ORDERED: Ondansetron 4 MG/2 ML VIAL IVP PRN (09:04)
[2017-04-21] MEDS ORDERED: Acetaminophen 325 MG TABLET PO PRN (09:04)
[2017-04-21] MEDS ORDERED: Naloxone 0.4 MG/ML INJ IVP PRN (09:04)
--- NOTE | 2017-04-21 09:45 | Pulmonology Progress Note ---
Date of Encounter: 04/21/17 Time of Encounter: 09:30 Assessment and Plan (1) Gastric cancer Current Visit: Yes Status: Chronic Patient has recently diagnosed moderately differentiated adenocarcinoma with metastases to Liver. Getting chemotherapy went to his chemotherapy appointment found have acute on chronic blood loss anemia . Qualifiers: Malignant neoplasm of stomach location: unspecified location Qualified Code (s): C16.9 - Malignant neoplasm of stomach, unspecified (2) Upper GI bleeding Current Visit: No Status: Acute GI did a endoscopy the bleeding was coming from gastric ca tumour in the body of the stomach , was able to cauterize the bleed but could not stop . recommended to transfer to [facility] as his surgical oncologist is there , called Surgical Oncologist at [facility] accepted the patient waiting for bed , surgical oncologist he said he might able to do some procedures on him will discuss with IR tomorrow for any possibility of embolization. (3) Acute blood loss anemia Current Visit: Yes Status: Acute Hemoglobin is stabilized for now will continue to Monitor. (4) Acute kidney injury superimposed on CKD Current Visit: Yes Status: Acute Renal function improving , patient has Stage III CKD Objective PUL Vital signs: Last Vital Signs Temp 98.3 F 04/20/17 23:34 Pulse 80 04/21/17 09:00 Resp 16 04/21/17 09:00 BP 132/71 04/21/17 09:00 Pulse Ox 99 04/21/17 09:00 Results - Laboratory Findings CBC and BMP: 04/21/17 12:23 04/21/17 12:23 PT/INR, D-dimer PT 15.7 Seconds (9.4-12.1) H 04/20/17 14:14 Abnormal lab findings: Abnormal lab results RBC 2.79 M/mcL (4.19-5.50) L 04/21/17 00:55 Hgb 7.4 g/dL (12.9-16.9) L 04/21/17 06:00 Hct 23.7 % (37.5-50.1) L 04/21/17 06:00 RDW 16.4 % (11.5-14.5) H 04/21/17 00:55 Nucleated RBCs/100 WBC 0.5 /100 WBC (0) H 04/20/17 14:33 Hypochromasia Present (Not Present) A 04/20/17 14:33 Poikilocytosis 2+ (Not Present) A 04/20/17 14:33 Anisocytosis 1+ (Not Present) A 04/20/17 14:33 Microcytosis Present (Not Present) A 04/20/17 14:33 Toribio Cells 1+ (Not Present) A 04/20/17 14:33 Schistocytes 1+ (Not Present) A 04/20/17 14:33 PT 15.7 Seconds (9.4-12.1) H 04/20/17 14:14 Chloride 118 mEq/L (98-107) H 04/20/17 14:14 Carbon Dioxide 15 mEq/L (23-29) L 04/20/17 14:14 BUN 41 mg/dL (8-23) H 04/20/17 14:14 Creatinine 2.39 mg/dL (0.70-1.30) H 04/20/17 14:14 Est GFR ( Amer) 33 (> 60) L 04/20/17 14:14 Est GFR (Non-Af Amer) 28 (> 60) L 04/20/17 14:14 Glucose 112 mg/dL (70-105) H 04/20/17 14:14 POC Glucose 116 (58-89) H 04/20/17 19:27 Calculated Osmolality 301 (280-300) H 04/20/17 14:14 Calcium 7.3 mg/dL (8.6-10.3) L 04/20/17 14:14 Alkaline Phosphatase 172 Units/L (34-104) H 04/20/17 14:14 Albumin 2.0 g/dL (3.5-5.7) L 04/20/17 14:14 Globulin 4.4 g/dL (2.4-3.5) H 04/20/17 14:14 Albumin/Globulin Ratio 0.5 (1.1-2.2) L 04/20/17 14:14 Stool Occult Blood Positive (Negative) A 04/20/17 Unknown - Clinical Findings Intake & Output: Intake & Output 04/20/17 04/21/17 04/21/17 23:59 07:59 15:59 Intake Total 950 / 950 250 / 250 0 / 0 Output Total 1120 / 1120 580 / 580 Balance -170 / -170 -330 / -330 0 / 0 Weight 117 kg 115.2 kg 113.7 kg - VTE Reasons for not Prescribing Prophylaxis: Medical contraindication Consult Discharge Plan - Plan Referrals: Rhoda Yu MD [Primary Care Provider] -
--- NOTE | 2017-04-21 10:46 | Gastroenterology Consult Note ---
<Gomez Colon - Last Filed: 04/21/17 10:54> Date of Encounter: 04/21/17 Time of Encounter: 09:10 - Assessment and plan (1) GI bleed Current Visit: Yes Status: Acute Assessment and plan: Patient with melena for the past 2 weeks. Hgb 4.9 yesterday and after 4 units PRBC Hgb 7.4 this morning. Plan for EGD today to r/o esophagitis, gastritis, duodenitis, PUD, MW tear, or AVM. Keep patient NPO. Qualifiers: GI bleed type/associated pathology: melena Qualified Code(s): K92.1 - Melena (2) Gastric cancer Current Visit: Yes Status: Chronic Assessment and plan: Diagnosed on EGD 03/10/2017 with moderately differentiated adenocarcinoma. Patient following with [facility]. Qualifiers: Malignant neoplasm of stomach location: unspecified location Qualified Code (s): C16.9 - Malignant neoplasm of stomach, unspecified (3) Anemia Current Visit: Yes Status: Acute Assessment and plan: Hgb 4.9 yesterday, and after 4 units PRBC Hgb 7.4 this AM. Continue to monitor CBC and transfuse PRBC as needed. Plan for EGD today, keep pt NPO. Qualifiers: Anemia type: unspecified type Qualified Code(s): D64.9 - Anemia, unspecified - Time Spent With Patient Total time spent is greater than 50% in coordination of care (as documented) at patient's floor/unit and/or counseling patient: GI History of Present Illness - Data of Consult Patient: known to practice within the last 3 years Consult date: 04/21/17 Requesting Physician: Alvin Haines MD - Consult Narrative Reason for consult: GI bleed, Hx stomach cancer History of present illness: Mr. Morrison is a 62 year old male with PMHx of gastric andenocarcinoma dx Feb 2017, CAD, GERD, GI bleed, HLD, HTN, CKD who was seen at the Cancer Center and found to have Hgb of 4.9 and was sent to the ED for evaluation. He reports black tarry stools for the past 2 weeks. He reports fatigue and dyspnea on exertion over the past couple of weeks as well. He denies fever, chills, chest pain, shortness of breath, abdominal pain, hematochezia. He reports one episode of vomiting but denies hematemesis. We were consulted to evaluate his melena and anemia. Procedures: EGD 03/10/2017 Dr. Ceballos: Moderately differentiated adenocarcinoma. NSAIDs: None Anticoagulation: None Past Med Surg Social Fam HX - Past Medical History Medical history: coronary artery disease, GERD, GI bleed, hyperlipidemia, hypertension, RA, renal disease Psychiatric history: no psych history - Past Surgical History Surgical History: angioplasty/stent, appendectomy, coronary bypass (CABG), vasectomy - Social History Smoking Status: Former smoker Alcohol use: none Drug use: none - Family History Father Family Member Ethnicity: Non- Living Status: Hx Family Cardiac Disorders: Yes ([place], CAD, HTN) Mother Family Member Ethnicity: Non- Living Status: Still Living Brother Family Member Ethnicity: Non- Living Status: Hx Family Cardiac Disorders: Yes ([place], CAD, HTN) Sister Family Member Ethnicity: Non- Living Status: Still Living - Gastrointestinal Gastrointestinal: Present: as per HPI - Constitutional Constitutional: as per HPI - EENT Eyes: as per HPI Ears: Present: as per HPI Nose, mouth and throat: Present: as per HPI - Cardiovascular Cardiovascular ROS: Present: as per HPI - Respiratory Respiratory IM: Present: as per HPI - Genitourinary Genitourinary: Absent: change in color, Urinary frequency - Neurological ROS Neurological GI: Present: as per HPI - Hematologic/Lymphatic Hematologic/Lymphatic pediatric: Present: as per HPI - Musculoskeletal Musculoskeletal ROS GI: Present: as per HPI - Integumentary Integumentary GI: Present: as per HPI - Psychiatric ROS Psychiatric GI: Present: as per HPI - Endocrine Endocrine IM: Present: as per HPI - Constitutional Vitals: Temp Pulse Resp BP Pulse Ox 98.3 F 88 18 132/71 98 04/20/17 23:34 04/21/17 10:00 04/21/17 10:00 04/21/17 09:00 04/21/17 10:00 General appearance: Present: cooperative, A&O X 3, no acute distress, answers questions appropriately - Head Head exam: Present: atraumatic, normocephalic - Eye Eye exam: Present: normal appearance, sclera anicteric - ENT ENT exam: Present: mucous membranes dry - Neck Neck exam general surgery: Present: normal inspection, trachea midline - Respiratory Respiratory exam: Present: CTAB. Absent: rales, rhonchi - Cardiovascular Cardiovascular exam: Present: RRR, +S1, +S2 - GI/Abdominal GI/Abdominal exam: Present: soft, no peritoneal signs. Absent: distended, firm , guarding, tenderness - Rectal Rectal exam: Present: deferred - Extremities Exam Extremities exam: Present: warm - Neurological Exam Neurological exam: Present: no focal deficits - Psychiatric Psychiatric exam: Present: normal affect, normal mood - Skin Skin exam: Present: dry, intact, normal color, warm Results - Labs CBC & Chem 7: 04/21/17 06:00 04/20/17 14:14 Labs: Last Result Calcium 7.3 mg/dL (8.6-10.3) L 04/20/17 14:14 Troponin I < 0.03 ng/mL (< 0.04) 04/20/17 14:14 Stool Occult Blood Positive (Negative) A 04/20/17 Unknown Entire Visit Hgb 7.4 g/dL (12.9-16.9) L 04/21/17 06:00 Hct 23.7 % (37.5-50.1) L 04/21/17 06:00 PT 15.7 Seconds (9.4-12.1) H 04/20/17 14:14 Total Bilirubin 0.6 mg/dL (0.3-1.0) 04/20/17 14:14 AST 38 Units/L (13-39) 04/20/17 14:14 ALT 23 Units/L (7-52) 04/20/17 14:14 - ABG ABG results: PT/INR, D-dimer PT 15.7 Seconds (9.4-12.1) H 04/20/17 14:14 Consult Discharge Plan - Plan Referrals: Rhoda Yu MD [Primary Care Provider] - <Kaleb Ceballos - Last Filed: 04/21/17 21:29> Date of Encounter: 04/21/17 Time of Encounter: 13:00 - Time Spent With Patient Total time spent is greater than 50% in coordination of care (as documented) at patient's floor/unit and/or counseling patient: GI History of Present Illness - Data of Consult Requesting Physician: Alvin Haines MD - Consult Narrative History of present illness: Mr. Morrison is a 62 year old male - Constitutional Vitals: Temp Pulse Resp BP Pulse Ox 98.4 F 77 18 150/87 99 04/21/17 20:50 04/21/17 20:50 04/21/17 20:50 04/21/17 20:50 04/21/17 20:50 Results - Labs CBC & Chem 7: 04/21/17 12:23 04/21/17 12:23 Labs: Last Result Calcium 7.8 mg/dL (8.6-10.3) L 04/21/17 12:23 Troponin I < 0.03 ng/mL (< 0.04) 04/20/17 14:14 Stool Occult Blood Positive (Negative) A 04/20/17 Unknown Entire Visit Hgb 8.1 g/dL (12.9-16.9) L 04/21/17 12:23 Hct 25.3 % (37.5-50.1) L 04/21/17 12:23 PT 15.7 Seconds (9.4-12.1) H 04/20/17 14:14 Total Bilirubin 0.6 mg/dL (0.3-1.0) 04/20/17 14:14 AST 38 Units/L (13-39) 04/20/17 14:14 ALT 23 Units/L (7-52) 04/20/17 14:14 - ABG ABG results: PT/INR, D-dimer PT 15.7 Seconds (9.4-12.1) H 04/20/17 14:14 - Attending Attestation I examined this patient and my medical decision-making was reviewed with the Resident Physician. I agree with the documented findings, disposition and treatment plan as described except to the extent set forth below. Pt with known gastric cancer now with melena with very low HB. Pt is most prob bleeding from his agstric tumor
--- NOTE | 2017-04-21 11:58 | Anesthesia Evaluation PreOp ---
Date of Encounter: 04/21/17 Time of Encounter: 11:56 - Past History Planned Operation: EGD Cardiac History: HTN, Hyperlipidemia, Cardiac Surgery (2 vessel CABG 2012 denies current cardiac symptoms), Cardiac Stent (x4 before sx in 2012) Pulmonary History: Denies Any Significant HX ADVERTISING AGENT History: Denies Any Significant HX Other Medical History: Renal (MAHNAZ), Other (melena for the past 2 weeks, Gastric CA) Anesthesia History: No Prior Anesthetic Complications, Past Anesthesia (CABG, EGD) Alcohol Use: none Drug use: none Medications and Allergies Folic Acid 1 mg PO DAILY 03/07/17 [History] Nitroglycerin 0.4 mg PO Q5M PRN 03/07/17 [History] Pantoprazole Sodium 40 mg PO BID #60 tablet.dr 03/12/17 [Rx] amLODIPine [Norvasc] 5 mg PO DAILY #30 tablet 03/12/17 [Rx] Losartan Potassium [Cozaar] 100 mg PO DAILY 03/30/17 [History] Megestrol Acetate [Megace] 800 mg PO DAILY #400 mls 03/30/17 [Rx] OxyCODONE Immed Rel [Roxicodone 5 MG] 10 mg PO Q8HR PRN #120 tablet 03/30/17 [Rx ] Ondansetron HCl [Zofran] 4 mg PO Q6H PRN #60 tablet 04/14/17 [Rx] Prochlorperazine Maleate [Compazine] 10 mg PO Q8HR PRN #60 tablet 04/14/17 [Rx] Atorvastatin Calcium 80 mg PO HS 04/20/17 [History] Capecitabine [Xeloda] 1,500 mg PO BID 04/20/17 [History] Carvedilol 12.5 mg PO BID 04/20/17 [History] Docusate [Colace] 100 mg PO BID 04/20/17 [History] Ferrous Sulfate 140 mg PO DAILY 04/20/17 [History] Sucralfate [Carafate] 1 gm PO Q6H 04/20/17 [History] Tamsulosin [Flomax] 0.4 mg PO DAILY 04/20/17 [History] 3 Allergy/AdvReac Type Severity Reaction Status Date / Time Amoxicillin [From Augmentin] AdvReac Gastrointestinal Verified 04/20/17 12:00 Upset clavulanic acid AdvReac Gastrointestinal Verified 04/20/17 12:00 [From Augmentin] Upset - Meds/Allergy Pre-op Review Medications Reviewed: Yes Allergies Reviewed: Yes Beta Blockers on Current Med List: Yes Anesthesia Results - Labs 04/21/17 06:00 04/20/17 14:14 - Imaging EKG: image reviewed (SR) Anesthesia Exam O2 Sat Height 1.85 m Weight 113.7 kg Weight 115.2 kg Weight 117 kg Weight 112 kg O2 Sat by Pulse Oximetry 98 O2 Sat by Pulse Oximetry 99 O2 Sat by Pulse Oximetry 98 O2 Sat by Pulse Oximetry 100 O2 Sat by Pulse Oximetry 100 O2 Sat by Pulse Oximetry 100 O2 Sat by Pulse Oximetry 100 O2 Sat by Pulse Oximetry 100 O2 Sat by Pulse Oximetry 100 O2 Sat by Pulse Oximetry 100 O2 Sat by Pulse Oximetry 100 O2 Sat by Pulse Oximetry 100 O2 Sat by Pulse Oximetry 99 O2 Sat by Pulse Oximetry 100 O2 Sat by Pulse Oximetry 93 O2 Sat by Pulse Oximetry 99 O2 Sat by Pulse Oximetry 93 O2 Sat by Pulse Oximetry 100 O2 Sat by Pulse Oximetry 100 O2 Sat by Pulse Oximetry 100 O2 Sat by Pulse Oximetry 100 O2 Sat by Pulse Oximetry 100 O2 Sat by Pulse Oximetry 100 O2 Sat by Pulse Oximetry 100 O2 Sat by Pulse Oximetry 100 O2 Sat by Pulse Oximetry 100 O2 Sat by Pulse Oximetry 98 O2 Sat by Pulse Oximetry 100 O2 Sat by Pulse Oximetry 100 O2 Sat by Pulse Oximetry 100 O2 Sat by Pulse Oximetry 100 O2 Sat by Pulse Oximetry 100 O2 Sat by Pulse Oximetry 98 Vital Signs Temp Pulse Resp BP Pulse Ox 98.0 F 73 18 80/50 98 04/20/17 13:23 04/20/17 13:23 04/20/17 13:23 04/20/17 13:23 04/20/17 13:23 Vital Signs/O2 Sat, Most Current Temp Pulse Resp BP Pulse Ox 98.3 F 88 18 132/71 98 04/20/17 23:34 04/21/17 11:00 04/21/17 10:00 04/21/17 09:00 04/21/17 10:00 Height: 6'1'' Weight: 250# NPO (# of Hours): > 8 hrs Pain Scale: 0 Pain Scale Used: Numeric (1 - 10) - HEENT Pupil (Motor): Pupils equal, EOMI Mallampati: II Teeth: Normal Oral Opening: Greater than 3 - ADVERTISING AGENT LOC: Oriented ADVERTISING AGENT Motor: Normal RUE, Normal LUE, Normal RLE, Normal LLE, Normal Face ADVERTISING AGENT Sensory: Normal: RUE, LUE, RLE, LLE, Face - Cardiac Rhythm: Regular Murmur: None JVD: No Carotid Bruit: No - Pulmonary Breath Sounds: bilateral Clear Respiratory Effort: Symmetrical Anesthesia Assess/Plan ASA Score: 3 Modified Terrance Scale for Level of Consciousness: Cooperative, oriented, and tranquil Anesthetic Plan: MAC Autologous Blood: Yes Monitoring Plan: Standard Monitors Recovery Plan: Other
[2017-04-21 12:46] LABS: Hematocrit 25.3 % (37.5-50.1); Hemoglobin 8.1 g/dL (12.9-16.9)
[2017-04-21 12:57] LABS: Calcium 7.8 mg/dL (8.6-10.3); Potassium 4.4 mEq/L (3.5-5.1)
[2017-04-21] MEDS ORDERED: *HR* Propofol 200 MG/20 ML VIAL IVP ONE ×2 (13:19→13:42)
[2017-04-21] MEDS ORDERED: *HR* EPINEPHrine 1 MG/10 ML SYRINGE INTRATRACH PRN (13:38)
[2017-04-21] MEDS ORDERED: *HR* EPINEPHrine 1 MG/10 ML SYRINGE ONE (13:51)
--- NOTE | 2017-04-21 13:53 | Anesthesia Evaluation Post Op ---
Date of Encounter: 04/21/17 Time of Encounter: 13:52 - Vital Signs Vital Signs: Vital Signs/O2 Sat, Most Current Temp Pulse Resp BP Pulse Ox 98.3 F 84 18 179/89 99 04/21/17 13:10 04/21/17 13:10 04/21/17 13:10 04/21/17 13:10 04/21/17 13:10 - Lungs Lungs: Clear Ascult./Percussion - Airway Airway: Non-obstructed - Cardiovascular Regular Rate - Mental Status Mental Status: Alert & Oriented, Answers Appropriately - Nausea Vomiting Nausea Vomiting: Not Present - Hydration Hydration: NPO, Has not voided Notes: 04/21/17 13:52 awake, VSS, no anesthetic complications
[2017-04-21] MEDS ORDERED: 0.9 % Sodium Chloride 250 ML ONE (15:22)
[2017-04-21] MEDS: Pantoprazole 40 MG VIAL IVP SCH (16:01)
[2017-04-21] MEDS ORDERED: Pantoprazole 40 MG VIAL IVP SCH (18:00)
[2017-04-21] MEDS: *HR* OxyCODONE Immed Rel 5 MG TABLET PO PRN (20:22)
[2017-04-22 00:17] LABS: Hematocrit 26.9 % (37.5-50.1); Hemoglobin 8.7 g/dL (12.9-16.9)
[2017-04-22] MEDS: Pantoprazole 40 MG VIAL IVP SCH (05:11)
[2017-04-22] MEDS: *HR* OxyCODONE Immed Rel 5 MG TABLET PO PRN (06:20)
[2017-04-22] MEDS ORDERED: *HR* OxyCODONE Immed Rel 5 MG TABLET PO PRN (08:47)
[2017-04-22] MEDS ORDERED: Ferrous Sulfate Oral Soln 300 MG/5 ML UDC PO SCH (09:00)
[2017-04-22] MEDS ORDERED: Folic Acid 1 MG TABLET PO SCH (09:00)
--- NOTE | 2017-04-22 11:03 | Pulmonology Progress Note ---
<Raghav Fletcher - Last Filed: 04/22/17 11:05> Date of Encounter: 04/22/17 Time of Encounter: 10:00 Assessment and Plan (1) GI bleed Status: Acute Patient presented with acute blood loss anemia in the setting of GI bleed. Patient underwent endoscopy found to have a gastric mass with malignancy. Masses injected. He has received 6 units PRBCs since admission currently stable. Hemoglobin 8.7. - Gastroenterology recommending transfer to [facility] for further intervention, patient is at high risk for recurrent bleeding. Qualifiers: GI bleed type/associated pathology: melena Qualified Code(s): K92.1 - Melena (2) Gastric cancer Status: Chronic Patient has gastric malignancy. - Oncology following. Qualifiers: Malignant neoplasm of stomach location: unspecified location Qualified Code (s): C16.9 - Malignant neoplasm of stomach, unspecified (3) Acute blood loss anemia Status: Acute Acute blood loss anemia secondary to intragastric mass. He has received 6 units PRBCs since admission. Mass has been injected, not bleeding at this time. Hemoglobin stable. Plan: - Continue to monitor H&H - Replace PRBCs if hemoglobin falls below 7.0 - Hold anticoagulation (4) HTN (hypertension) Status: Chronic Blood pressure stable, continue to hold Norvasc in the setting of acute blood loss anemia and volume depletion. - Continue Coreg twice a day - Advance antihypertensive medications as necessary. Qualifiers: Hypertension type: essential hypertension Qualified Code(s): I10 - Essential (primary) hypertension (5) Acute kidney injury superimposed on CKD Status: Acute Acute on chronic stage III kidney disease. Likely secondary to acute blood loss anemia. - Volume depletion, prerenal. Plan: - Continue to maintain hydration status - Monitor hemoglobin - Monitor renal function daily - Avoid nephrotoxic medications and renally dose antibiotics. Subjective Interval history: Mr. Morrison 62-year-old males and seen and evaluated patient bedside this morning. He is alert awake interactive denies any discomforts or pains. Denies any hemoptysis or vomiting of blood. He expresses that he is hungry and would like to advance his diet as tolerated. He is awaiting transfer to [facility] for further evaluation. Objective PUL Vital signs: Last Vital Signs Temp 98.2 F 04/22/17 07:15 Pulse 78 04/22/17 04:14 Resp 20 04/22/17 04:14 BP 123/65 04/22/17 04:14 Pulse Ox 100 04/22/17 04:14 General appearance: no acute distress Eyes: nonicteric ENT: oropharynx moist Neck: supple Effort: normal Cardiovascular: regular rate and rhythm Gastrointestinal: normoactive bowel sounds Integumentary: normal, other (Pale) Extremities: no cyanosis, no edema, no clubbing, pink and warm normal mental status, non-focal exam mood appropriate, affect normal Results - Laboratory Findings CBC and BMP: 04/22/17 00:07 04/21/17 12:23 PT/INR, D-dimer PT 15.7 Seconds (9.4-12.1) H 04/20/17 14:14 Abnormal lab findings: Abnormal lab results RBC 2.79 M/mcL (4.19-5.50) L 04/21/17 00:55 Hgb 8.7 g/dL (12.9-16.9) L 04/22/17 00:07 Hct 26.9 % (37.5-50.1) L 04/22/17 00:07 RDW 16.4 % (11.5-14.5) H 04/21/17 00:55 Nucleated RBCs/100 WBC 0.5 /100 WBC (0) H 04/20/17 14:33 Hypochromasia Present (Not Present) A 04/20/17 14:33 Poikilocytosis 2+ (Not Present) A 04/20/17 14:33 Anisocytosis 1+ (Not Present) A 04/20/17 14:33 Microcytosis Present (Not Present) A 04/20/17 14:33 [place] Cells 1+ (Not Present) A 04/20/17 14:33 Schistocytes 1+ (Not Present) A 04/20/17 14:33 PT 15.7 Seconds (9.4-12.1) H 04/20/17 14:14 Chloride 117 mEq/L (98-107) H 04/21/17 12:23 Carbon Dioxide 17 mEq/L (23-29) L 04/21/17 12:23 BUN 38 mg/dL (8-23) H 04/21/17 12:23 Creatinine 2.21 mg/dL (0.70-1.30) H 04/21/17 12:23 Est GFR ( Amer) 37 (> 60) L 04/21/17 12:23 Est GFR (Non-Af Amer) 30 (> 60) L 04/21/17 12:23 POC Glucose 116 (58-89) H 04/20/17 19:27 Calcium 7.8 mg/dL (8.6-10.3) L 04/21/17 12:23 Alkaline Phosphatase 172 Units/L (34-104) H 04/20/17 14:14 Albumin 2.0 g/dL (3.5-5.7) L 04/20/17 14:14 Globulin 4.4 g/dL (2.4-3.5) H 04/20/17 14:14 Albumin/Globulin Ratio 0.5 (1.1-2.2) L 04/20/17 14:14 Stool Occult Blood Positive (Negative) A 04/20/17 Unknown - Clinical Findings Intake & Output: Intake & Output 04/21/17 04/22/17 04/22/17 23:59 07:59 15:59 Intake Total 1278 / 1278 480 / 480 Output Total 425 / 425 400 / 400 Balance 853 / 853 -400 / -400 480 / 480 - VTE Reasons for not Prescribing Prophylaxis: Medical contraindication Documentation of Mechanical Device: Intermittent pneumatic compression device Consult Discharge Plan - Plan Referrals: Rhoda Yu MD [Primary Care Provider] - <Alvin Haines S - Last Filed: 04/22/17 19:00> Date of Encounter: 04/22/17 Assessment and Plan (1) Gastric cancer Status: Chronic Qualifiers: Malignant neoplasm of stomach location: unspecified location Qualified Code (s): C16.9 - Malignant neoplasm of stomach, unspecified (2) Upper GI bleeding Status: Acute (3) Acute blood loss anemia Status: Acute (4) Acute kidney injury superimposed on CKD Status: Acute Objective PUL Vital signs: Last Vital Signs Temp 98.4 F 04/22/17 11:43 Pulse 71 04/22/17 12:00 Resp 18 04/22/17 12:00 BP 105/77 04/22/17 12:00 Pulse Ox 96 04/22/17 12:00 Results - Laboratory Findings CBC and BMP: 04/22/17 00:07 04/21/17 12:23 PT/INR, D-dimer PT 15.7 Seconds (9.4-12.1) H 04/20/17 14:14 Abnormal lab findings: Abnormal lab results RBC 2.79 M/mcL (4.19-5.50) L 04/21/17 00:55 Hgb 8.7 g/dL (12.9-16.9) L 04/22/17 00:07 Hct 26.9 % (37.5-50.1) L 04/22/17 00:07 RDW 16.4 % (11.5-14.5) H 04/21/17 00:55 Nucleated RBCs/100 WBC 0.5 /100 WBC (0) H 04/20/17 14:33 Hypochromasia Present (Not Present) A 04/20/17 14:33 Poikilocytosis 2+ (Not Present) A 04/20/17 14:33 Anisocytosis 1+ (Not Present) A 04/20/17 14:33 Microcytosis Present (Not Present) A 04/20/17 14:33 [place] Cells 1+ (Not Present) A 04/20/17 14:33 Schistocytes 1+ (Not Present) A 04/20/17 14:33 PT 15.7 Seconds (9.4-12.1) H 04/20/17 14:14 Chloride 117 mEq/L (98-107) H 04/21/17 12:23 Carbon Dioxide 17 mEq/L (23-29) L 04/21/17 12:23 BUN 38 mg/dL (8-23) H 04/21/17 12:23 Creatinine 2.21 mg/dL (0.70-1.30) H 04/21/17 12:23 Est GFR ( Amer) 37 (> 60) L 04/21/17 12:23 Est GFR (Non-Af Amer) 30 (> 60) L 04/21/17 12:23 POC Glucose 116 (58-89) H 04/20/17 19:27 Calcium 7.8 mg/dL (8.6-10.3) L 04/21/17 12:23 Alkaline Phosphatase 172 Units/L (34-104) H 04/20/17 14:14 Albumin 2.0 g/dL (3.5-5.7) L 04/20/17 14:14 Globulin 4.4 g/dL (2.4-3.5) H 04/20/17 14:14 Albumin/Globulin Ratio 0.5 (1.1-2.2) L 04/20/17 14:14 Stool Occult Blood Positive (Negative) A 04/20/17 Unknown - Clinical Findings Intake & Output: Intake & Output 04/21/17 04/22/17 04/22/17 23:59 07:59 15:59 Intake Total 1278 / 1278 720 / 720 Output Total 425 / 425 400 / 400 Balance 853 / 853 -400 / -400 720 / 720 - Attending Attestation I saw the patient with the resident agree with History and Physical exam findings. Labs and Radiology were reviewed TAX COMPLIANCE REPRESENTATIVE: Patient is conscious oriented x3 following commands NECK : No JVD appreciated Pulmonary : Patient doesnt have any V/Q mismatch saturating well on room air . Cardiac : Hemodynamically stable Nutrition/GI: To advance his diet according to GI. Patient has gastric body tumour well differentiated carcinoma has slow oozing GI wanted to him to be evaluated by surgical oncologist Renal : labs reviewed Heme onc : Hb stable ID ; No acute issues Musculo skeletal / skin issues : No acute issues Disposition : Transferred to [facility] for evaluation for surgical oncologist . Code status: Full Code Family/POA:
[2017-04-22 13:01] VITALS: BP 105/77
--- NOTE | 2017-04-22 13:32 | Oncology Inp Consult Note ---
Date of Encounter: 04/22/17 Time of Encounter: 12:00 Assessment and Plan (1) Gastric cancer Status: Chronic Assessment and plan: Metastatic stage IV with liver lesions biopsied at [facility], on capecitabine developed GI bleed from tumor and severe anemia, s/p EGD progression gastric tumor. Hgb/BP stable after transfusion. Not a surgical candidate due to metastatic disease. Possible transfer if continues to bleed. May arrange out patient palliative Rt if necessary to control bleeding, prior to systemic chemotherapy. Taxol wkly planned with herceptin if HER2 is positive. Discussed plan with housestaff. Appreciate GI recommendations. Qualifiers: Malignant neoplasm of stomach location: unspecified location Qualified Code (s): C16.9 - Malignant neoplasm of stomach, unspecified - Data of Consult Requesting Physician: Alvin Haines MD Primary Care Provider: Rhoda Yu MD - Consult Narrative Reason for consult: Gastric cancer, metastatic disease in liver History of present illness: Mr. Morrison is a 62 year old male with moderately diff adenoca, stage IV with liver metastatic disease PAtient with medical history significant for coronary artery disease, gastroesophageal reflux disease, hyperlipidemia hypertension, rheumatoid arthritis, chronic kidney disease, history of angioplasty, stent placement, coronary artery bypass grafting, hospitalized to due to findings on endoscopy. Patient underwent EGD due to weight loss abdominal discomfort and was found to have a 3 cm large gastric ulcer in the lesser curvature with a clot. Patient was noted to have a hemoglobin of 9.4 that steadily declined to around 8. Oncology consulted with suspicion malignancy, from preliminary path. Final path reported moderately diff adenocarcinoma 03/10/[address] earlier in 02/[address] abd wo contrast cirrhotic appearing liver. He underwent laparoscopy and lavage/bx Liver bx-wedge 04/01/17--showed adenocarcinoma, metastatic Patient was scheduled for IV iron infusion which he missed. He did not want a port, wanted to start with capecitabine combination. Started pills orally, had black stools, coffee ground? emesis. Hgb was at 4 hospitalized for transfusion and EGD EGD findings reviewed, showed 8cm fungating ulcerated mass with oozing blood. Hgb/Hct stable. PAtient i sresting comfortably denies any pain. Past Med Surg Social Fam HX - Past Medical History Medical history: coronary artery disease, GERD, GI bleed, hyperlipidemia, hypertension, RA, renal disease Psychiatric history: no psych history - Past Surgical History Surgical History: angioplasty/stent, appendectomy, coronary bypass (CABG), vasectomy - Social History Smoking Status: Former smoker Alcohol use: none Drug use: none - Family History Father Family Member Ethnicity: Non- Living Status: Hx Family Cardiac Disorders: Yes (VT, CAD, HTN) Mother Family Member Ethnicity: Non- Living Status: Still Living Brother Family Member Ethnicity: Non- Living Status: Hx Family Cardiac Disorders: Yes (VT, CAD, HTN) Sister Family Member Ethnicity: Non- Living Status: Still Living Medications and Allergies Folic Acid 1 mg PO DAILY 03/07/17 [History] Nitroglycerin 0.4 mg PO Q5M PRN 03/07/17 [History] Pantoprazole Sodium 40 mg PO BID #60 tablet. 03/12/17 [Rx] amLODIPine [Norvasc] 5 mg PO DAILY #30 tablet 03/12/17 [Rx] Losartan Potassium [Cozaar] 100 mg PO DAILY 03/30/17 [History] OxyCODONE Immed Rel [Roxicodone 5 MG] 10 mg PO Q8HR PRN #120 tablet 03/30/17 [Rx ] Ondansetron HCl [Zofran] 4 mg PO Q6H PRN #60 tablet 04/14/17 [Rx] Prochlorperazine Maleate [Compazine] 10 mg PO Q8HR PRN #60 tablet 04/14/17 [Rx] Atorvastatin Calcium 80 mg PO HS 04/20/17 [History] Capecitabine [Xeloda] 1,500 mg PO BID 04/20/17 [History] Carvedilol 12.5 mg PO BID 04/20/17 [History] Docusate [Colace] 100 mg PO BID 04/20/17 [History] Ferrous Sulfate 140 mg PO DAILY 04/20/17 [History] Sucralfate [Carafate] 1 gm PO Q6H 04/20/17 [History] Tamsulosin [Flomax] 0.4 mg PO DAILY 04/20/17 [History] Megestrol Acetate [Megace] 800 mg PO DAILY #400 mls 04/22/17 [Rx] 3 Allergy/AdvReac Type Severity Reaction Status Date / Time Amoxicillin [From Augmentin] AdvReac Gastrointestinal Verified 04/20/17 12:00 Upset clavulanic acid AdvReac Gastrointestinal Verified 04/20/17 12:00 [From Augmentin] Upset Review of systems: as in HPI Oncology - Exam - Constitutional Vitals: Temp Pulse Resp BP Pulse Ox 98.4 F 71 18 105/77 96 04/22/17 11:43 04/22/17 12:00 04/22/17 12:00 04/22/17 12:00 04/22/17 12:00 General appearance: average body habitus - Head Head exam: Present: atraumatic - Eye Eye exam: Present: scleral icterus - ENT ENT exam: Present: mucous membranes moist - Respiratory Respiratory exam: Present: CTAB - Cardiovascular Cardiovascular exam: Present: +S1, +S2 - GI/Abdominal GI/Abdominal exam: Present: normal bowel sounds, soft - Extremities Exam Extremities exam: Present: normal inspection - Neurological Exam Neurological exam: Present: alert, CN II-XII intact, oriented X3 Oncology - Results Labs: Short CBC 04/22/17 Range/Units 00:07 Hgb 8.7 L (12.9-16.9) g/dL Hct 26.9 L (37.5-50.1) % Consult Discharge Plan - Plan Referrals: Rhoda Yu MD [Primary Care Provider] -
--- NOTE | 2017-04-22 15:16 | Discharge Summary ---
<Mk Mcghee - Last Filed: 04/22/17 15:13> Date of Encounter: 04/22/17 Time of Encounter: 15:14 - Discharge Diagnosis (1) GI bleed Priority: Primary Status: Acute Qualifiers: GI bleed type/associated pathology: melena Qualified Code(s): K92.1 - Melena (2) Gastric cancer Priority: Primary Status: Chronic Qualifiers: Malignant neoplasm of stomach location: unspecified location Qualified Code (s): C16.9 - Malignant neoplasm of stomach, unspecified (3) HTN (hypertension) Priority: Secondary Status: Chronic Qualifiers: Hypertension type: essential hypertension Qualified Code(s): I10 - Essential (primary) hypertension (4) Acute blood loss anemia Priority: Primary Status: Acute (5) Acute kidney injury superimposed on CKD Priority: Secondary Status: Acute - Discharge Medications Home Medications: Folic Acid 1 mg PO DAILY 03/07/17 [History] Nitroglycerin 0.4 mg PO Q5M PRN 03/07/17 [History] Pantoprazole Sodium 40 mg PO BID #60 tablet. 03/12/17 [Rx] amLODIPine [Norvasc] 5 mg PO DAILY #30 tablet 03/12/17 [Rx] Losartan Potassium [Cozaar] 100 mg PO DAILY 03/30/17 [History] OxyCODONE Immed Rel [Roxicodone 5 MG] 10 mg PO Q8HR PRN #120 tablet 03/30/17 [Rx ] Ondansetron HCl [Zofran] 4 mg PO Q6H PRN #60 tablet 04/14/17 [Rx] Prochlorperazine Maleate [Compazine] 10 mg PO Q8HR PRN #60 tablet 04/14/17 [Rx] Atorvastatin Calcium 80 mg PO HS 04/20/17 [History] Capecitabine [Xeloda] 1,500 mg PO BID 04/20/17 [History] Carvedilol 12.5 mg PO BID 04/20/17 [History] Docusate [Colace] 100 mg PO BID 04/20/17 [History] Ferrous Sulfate 140 mg PO DAILY 04/20/17 [History] Sucralfate [Carafate] 1 gm PO Q6H 04/20/17 [History] Tamsulosin [Flomax] 0.4 mg PO DAILY 04/20/17 [History] Megestrol Acetate [Megace] 800 mg PO DAILY #400 mls 04/22/17 [Rx] Allergies/Adverse Reactions: 3 Allergy/AdvReac Type Severity Reaction Status Date / Time Amoxicillin [From Augmentin] AdvReac Gastrointestinal Verified 04/20/17 12:00 Upset clavulanic acid AdvReac Gastrointestinal Verified 04/20/17 12:00 [From Augmentin] Upset Labs on day of discharge: Labs from last 24 hours 04/22/17 04/20/17 00:07 Unknown Hgb 8.7 L Hct 26.9 L Crossmatch See Detail Date of admission: 04/20/17 16:24 Primary care physician: Rhoda Yu MD Consults: GI Oncology Discharging clinician: Mk Mcghee Anticipated date of discharge: 04/22/17 - Patient Status Disposition: Transfer Other Condition: Fair Overall status at discharge: patient is not back to baseline - Discharge Instructions Follow Up With: Rhoda Yu MD [Primary Care Provider] - - Hospital Course Hospital course: Mr. Morrison is a 62 year old male with PMhx of Gastric Cancer currently on oral chemotherapy, coronary artery disease with stents, GERD, GI bleed, hyperlipidemia, hypertension, RA, renal disease. Patient presented with acute blood loss anemia in the setting of GI bleed. Patient's Hgb was 5.0 on admission Patient underwent endoscopy found to have a gastric mass with malignancy. Masses injected. He has received 6 units PRBCs since admission currently stable. Latest hgb 8.7. Gastroenterology recommending transfer to [facility] for further intervention, patient is at high risk for recurrent bleeding. - Time Spent with Patient Total time spent providing and/or coordinating discharge services: Greater than 30 minutes Physical Examination Vital Signs: Vital Signs, Last 4 Hours Temp Pulse Resp BP Pulse Ox 04/22/17 12:00 71 18 105/77 96 04/22/17 11:43 98.4 F General appearance: no acute distress Eyes: nonicteric ENT: oropharynx moist Neck: supple Effort: normal Cardiovascular: regular rate and rhythm Gastrointestinal: normoactive bowel sounds Integumentary: normal, other (pale) Extremities: no cyanosis, no edema, no clubbing, pink and warm - VTE Reasons for not Prescribing Prophylaxis: Medical contraindication Documentation of Mechanical Device: Intermittent pneumatic compression device <Alvin Haines S - Last Filed: 04/22/17 15:46> Date of Encounter: 04/22/17 - Discharge Diagnosis (1) Gastric cancer Status: Chronic Qualifiers: Malignant neoplasm of stomach location: unspecified location Qualified Code (s): C16.9 - Malignant neoplasm of stomach, unspecified (2) Upper GI bleeding Status: Acute (3) Acute blood loss anemia Status: Acute (4) Acute kidney injury superimposed on CKD Status: Acute Labs on day of discharge: Labs from last 24 hours 04/22/17 04/20/17 00:07 Unknown Hgb 8.7 L Hct 26.9 L Crossmatch See Detail Date of admission: 04/20/17 16:24 Primary care physician: Rhoda Yu MD - Hospital Course Hospital course: Mr. Morrison is a 62 year old male with history of gastric body well differentiated adenocarcinoma came with acute on chronic blood loss anemia responded well to resuscitation . went in cauterized the tumour still was bleeding and it has high chance of recurrent bleed felt he will benefit surgical oncology opinion for surgical intervention , surgical oncologist at [facility] accepted the patient he is transferred today. - Time Spent with Patient Total time spent providing and/or coordinating discharge services: Physical Examination Vital Signs: Vital Signs, Last 4 Hours Temp Pulse Resp BP Pulse Ox 04/22/17 12:00 71 18 105/77 96 04/22/17 11:43 98.4 F - Attending Attestation I agree with resident documentation please see my addendum also.
== END 2017-04-22 15:15 | disposition short-term general hospital (02) | DRG 378 ==
LOC: EMEROO 13:22 → ICNU 16:24
PROVIDERS: ADMIT Internal Medicine Pulmonary Disease; ATTEND Internal Medicine Pulmonary Disease